=== PATIENT | female | born 1950 | race Caucasian/White ===

== ENCOUNTER 2020-07-07 09:21 | Outpatient (REF) | payer MEDICARE, MEDICAID, SELFPAY ==
--- NOTE | 2020-07-07 10:59 | XR_ITS ---
EXAMINATION: XR KNEES, STANDING AP XR KNEE, LEFT CLINICAL INFORMATION: Knee pain COMPARISON: Standing AP view of both knees and lateral and axial patella views of the left knee dated 09/07/2019. TECHNIQUE: Standing AP view of both knees is performed along with lateral and axial patella views of the left knee. FINDINGS: Left knee: There is total knee arthroplasty. The hardware is intact. There is no fracture, dislocation, or destructive process. No osteolysis. Edema anterior knee soft tissues and Hoffa's fat pad appears decreased from prior study 09/07/2019. Corticated ossification lateral side patellofemoral joint is stable. Right knee: There are degenerative changes greatest medial knee joint compartment with joint narrowing and marginal osteophytes similar to prior study. No interval erosive change or chondrocalcinosis. XR/XR knee standing BI IMPRESSION: Left: Total knee arthroplasty. Hardware intact. No destructive process. Right: Degenerative changes similar to prior exam.
--- NOTE | 2020-07-07 10:59 | XR_ITS ---
EXAMINATION: XR KNEES, STANDING AP XR KNEE, LEFT CLINICAL INFORMATION: Knee pain COMPARISON: Standing AP view of both knees and lateral and axial patella views of the left knee dated 09/07/2019. TECHNIQUE: Standing AP view of both knees is performed along with lateral and axial patella views of the left knee. FINDINGS: Left knee: There is total knee arthroplasty. The hardware is intact. There is no fracture, dislocation, or destructive process. No osteolysis. Edema anterior knee soft tissues and Hoffa's fat pad appears decreased from prior study 09/07/2019. Corticated ossification lateral side patellofemoral joint is stable. Right knee: There are degenerative changes greatest medial knee joint compartment with joint narrowing and marginal osteophytes similar to prior study. No interval erosive change or chondrocalcinosis. XR/XR knee LT 2V IMPRESSION: Left: Total knee arthroplasty. Hardware intact. No destructive process. Right: Degenerative changes similar to prior exam.
== END 2020-07-07 09:22 | disposition home or self-care (01) ==
LOC: HO.HOSX 09:21
PROVIDERS: Visit Provider Orthopaedic Surgery
DX: M25.569 Pain in unspecified knee (principal); Z96.652 Presence of left artificial knee joint
CPT/HCPCS: 73560; 73565; 99212

== ENCOUNTER 2020-09-22 10:58 | Outpatient (REF) | payer MEDICARE, MEDICAID, SELFPAY ==
[2020-09-22 11:49] LABS: Estimated Average Glucose 120 mg/dL; Hemoglobin A1c % 5.8 %
[2020-09-22 12:17] LABS: Alanine Aminotransferase 23 U/L (0-31); Albumin Level 4.3 g/dL (3.5-5.0); Alkaline Phosphatase 70 U/L (39-117); Aspartate Amino Transferase 22 U/L (5-31); Bilirubin Direct 0.3 mg/dL (0.0-0.5); Bilirubin Total 0.6 mg/dL (0.0-1.0); Cholesterol 158 mg/dL; Glucose Fasting 107 mg/dL (60-99); HDL Cholesterol 61 mg/dL; LDL Cholesterol Calculated 80 mg/dl; Total Protein 7.2 g/dL (6.5-8.0); Triglycerides 87 mg/dL
[2020-09-22 12:38] LABS: Reflex LDLD? No
== END 2020-09-22 10:59 | disposition home or self-care (01) ==
LOC: HO.LNP 10:58
PROVIDERS: PCP Internal Medicine; Visit Provider Internal Medicine
DX: E78.00 Pure hypercholesterolemia, unspecified (principal); R73.03 Prediabetes
CPT/HCPCS: 80061; 80076; 82947; 83036

== ENCOUNTER → 2020-11-25 12:44 | Outpatient (BNVA) | payer MEDICARE, MEDICAID, SELFPAY | PROVIDERS: PCP Internal Medicine; Referring Provider Internal Medicine; Visit Provider Internal Medicine | DX: I25.10 Atherosclerotic heart disease of native coronary artery without angina pectoris (principal); E78.5 Hyperlipidemia, unspecified | CPT/HCPCS: 93005; 99212 ==

== ENCOUNTER 2021-03-24 10:11 | Outpatient (REF) | payer MEDICARE, MEDICAID, SELFPAY ==
[2021-03-24 10:16] LABS: MANUAL DIFF FLAG NO
[2021-03-24 10:57] LABS: Basophils Percent Auto 0.7 % (0-2); Eosinophils Absolute Auto 0.2 X10*3/uL (0.0-0.4); Eosinophils Percent Auto 2.7 % (0-4); Hematocrit 45.7 % (37-47); Hemoglobin 14.6 g/dl (12.0-16.0); Imm Gran Abs Auto 0.01 X10*3/uL (0.00-0.03); Imm Gran Pct Auto 0.2 % (0.0-0.4); Lymphocytes Absolute Auto 1.6 X10*3/uL (1.2-4.9); Lymphocytes Percent Auto 26.8 % (20-40); Mean Corpuscular HGB Conc 31.9 g/dl (31.0-35.0); Mean Corpuscular Hemoglobin 29.9 pg (27.0-33.0); Mean Corpuscular Volume 93.6 fL (80-98); Mean Platelet Volume 10.6 fL (9.4-12.3); Monocytes Absolute Auto 0.6 X10*3/uL (0.1-1.2); Monocytes Percent Auto 9.6 % (2-11); Neutrophils Absolute Auto 3.5 X10*3/uL (2.0-8.3); Platelet Count 260 X10*3/uL (160-400); Red Blood Count 4.88 X10*6/uL (4.20-5.50); Red Cell Distribution Width 13.6 % (11.0-16.0); White Blood Count 5.8 X10*3/uL (4.8-10.8)
[2021-03-24 11:20] LABS: Appearance Urine CLEAR; Color Urine YELLOW; Glucose Urine UA NEG (NEG); Leukocyte Esterase Urine NEG (NEG); Nitrite Urine NEG (NEG); Specific Gravity - Urine >= 1.030 (1.005-1.025); Urine Blood TRACE (NEG); Urine Ketones NEG (NEG); Urine Protein NEG (NEG-TRACE)
[2021-03-24 11:38] LABS: Alanine Aminotransferase 17 U/L (0-31); Albumin Level 4.2 g/dL (3.5-5.0); Alkaline Phosphatase 74 U/L (39-117); Anion Gap 12 (12-20); Aspartate Amino Transferase 21 U/L (5-31); Bilirubin Total 0.5 mg/dL (0.0-1.0); Blood Urea Nitrogen 23 mg/dL (9-16); Calcium 9.4 mg/dL (8.4-10.2); Carbon Dioxide 28 mmol/L (22-29); Chloride 106 mmol/L (96-108); Cholesterol 160 mg/dL; Estimated Glomerular Filt Rate > 60; Glucose Fasting 110 mg/dL (60-99); HDL Cholesterol 54 mg/dL; LDL Cholesterol Calculated 78 mg/dl; Potassium 4.8 mmol/L (3.3-5.1); Sodium 141 mmol/L (135-145); Triglycerides 140 mg/dL
[2021-03-24 11:50] LABS: Estimated Average Glucose 126 mg/dL
[2021-03-24 11:59] LABS: Creatinine Urine 169.55 mg/dL; Microalbum/Creatinine Ratio Ur 4.1 ug/mg cr
[2021-03-24 12:02] LABS: Vitamin D 25-OH Total 61.4 ng/mL (>30)
[2021-03-24 12:22] LABS: RBC Urine 0-2 /HPF (0); WBC Urine 0-2 /HPF (0-4)
[2021-03-24 12:23] LABS: Mucus Urine 1+ /LPF; Squamous Epithelial Cell Urine TRACE /LPF
[2021-03-24 12:24] LABS: Reflex LDLD? No
== END 2021-03-24 10:12 | disposition home or self-care (01) ==
LOC: HO.LNP 10:11
PROVIDERS: Visit Provider Internal Medicine
DX: E03.9 Hypothyroidism, unspecified (principal); E78.00 Pure hypercholesterolemia, unspecified; E55.9 Vitamin D deficiency, unspecified; R73.03 Prediabetes
CPT/HCPCS: 80053; 80061; 81001; 81003; 82043; 82306; 83036; 85025

== ENCOUNTER 2021-03-24 10:38 | Outpatient (REF) | payer MEDICARE, MEDICAID, SELFPAY ==
--- NOTE | ~2021-03-24 | MM_ITS ---
EXAMINATION: MM SCREENING DIGITAL BREAST TOMOSYNTHESIS, BILATERAL CLINICAL INFORMATION: Screening. Asymptomatic. The lifetime risk of breast cancer based on the Tyrer-Cuzick Model is 3.3%. COMPARISON: Mammography: March 18, 2020 and studies dating back to September 12, 2015 TECHNIQUE: Digital breast tomosynthesis is performed in both the craniocaudal and mediolateral oblique views along with computer-aided detection (CAD). Synthesized 2D images are generated from the tomosynthesis. FINDINGS: There are scattered areas of fibroglandular density (ACR BI-RADS breast composition Category b). There are no significant masses, abnormal calcifications, or other abnormalities. MM/MM tomosynthesis screening BI IMPRESSION: There are no significant changes from prior study. ASSESSMENT: BI-RADS 1: Negative RECOMMENDATION: Routine annual mammography screening. This patient's information was entered into a reminder system with a target due date for their next mammogram.
--- NOTE | ~2021-03-24 | MM_ITS ---
EXAMINATION: BONE DENSITOMETRY CLINICAL INDICATION: Osteoporosis. COMPARISON: Previous BD dated 03/20/2019 and baseline BD dated 03/07/2015. TECHNIQUE: Using a Run3D QDR series with the [employer] Software, dual-energy x-ray absorptiometry was performed of the lumbar spine and left hip. The images are of good technical quality. Summary results are attached. FINDINGS: AP SPINE L1-L4: Current: BMD 1.120 g/cm2, Z-score 1.3, T-score -0.5, normal, 2.3% increase from previous, 7.2% increase from baseline (<5% change is not significant). Prior: BMD 1.095 g/cm2. Baseline: BMD 1.045 g/cm2. LEFT FEMUR, NECK: Current: BMD 0.673 g/cm2, Z-score -0.9, T-score -2.6, osteoporosis. Prior: BMD 0.702 g/cm2. Baseline: BMD 0.740 g/cm2. LEFT FEMUR, TOTAL: Current: BMD 0.795 g/cm2, Z-score -0.2, T-score -1.7, osteopenia, 1.0% decrease from previous, 7.2% decrease from baseline (<5% change is not significant). Prior: BMD 0.803 g/cm2. Baseline: BMD 0.857 g/cm2. IDENTIFIED RISK FACTORS: Menopause, history of fracture (adult). HISTORY OF FRACTURE: Wrist. MEDICATIONS: Calcium supplements or multivitamin, vitamin D. MM/XR DEXA axial skeleton IMPRESSION: 1. DIAGNOSIS: Severe osteoporosis based on the lowest T-score value of -2.6 in the femoral neck and fracture history applying World Health Organization criteria. 2. 10-YEAR FRACTURE RISK PREDICTION, FRAX: Major osteoporotic fracture (clinical spine, forearm, hip or shoulder) 24.3%. Hip fracture 6.5%. 3. Treatment Recommendations: NOF guidelines recommend consideration for treatment in postmenopausal women and men age 50 and older presenting with the following: -A hip or vertebral (clinical or morphometric) fracture. -T-score less than or equal to -2.5 at the femoral neck or spine after appropriate evaluation to exclude secondary causes. -Low bone mass at the hip or spine and a 10-year fracture probability by FRAX of greater than or equal to 3% for hip fracture or greater than or equal to 20% for major osteoporotic fracture based on the [place] adapted WHO algorithm. 4. Other Recommendations: All treatment decisions require clinical judgment and consideration of individual patient factors, including patient preferences, comorbidities, previous drug use, risk factors not captured in the FRAX model (e.g. frailty, falls, vitamin D deficiency, increased bone turnover, interval significant decline in bone density) and possible under or overestimation of fracture risk by FRAX. Additional medical evaluation for secondary cause of low bone mineral density may be appropriate. FUTURE SCAN RECOMMENDATION: People with diagnosed cases of osteoporosis or at high risk for fracture should have regular bone mineral density tests. For patients eligible for Medicare, routine testing is allowed once every 2 years. The testing frequency can be increased to one year for patients who have rapidly progressing disease, those who are receiving or discontinuing medical therapy to restore bone mass, or have additional risk factors.
== END 2021-03-24 10:39 | disposition home or self-care (01) ==
LOC: HO.MAMMO 10:38
PROVIDERS: PCP Internal Medicine; Visit Provider Internal Medicine
DX: Z12.31 Encounter for screening mammogram for malignant neoplasm of breast (principal); Z13.820 Encounter for screening for osteoporosis; M81.0 Age-related osteoporosis without current pathological fracture; Z78.0 Asymptomatic menopausal state; Z79.899 Other long term (current) drug therapy; Z87.81 Personal history of (healed) traumatic fracture
CPT/HCPCS: 77063; 77067; 77080

== ENCOUNTER 2021-08-11 08:50 | Day surgery (SDC) | payer MEDICARE, MEDICAID, SELFPAY ==
--- NOTE | 2021-08-10 08:50 | P.CONAN_ITS ---
Documented by User: Savannah Vuong NP 08/10/21 08:57 HPI - Anesthesia Eval Consult details Narrative: 70yo F for Colonoscopy PMFSH Active Problems Active Problems: All Active Problems (Updated 11/25/20 @ 13:35 by Leonidas Noonan MD) Other and unspecified hyperlipidemia (Acute) Atherosclerotic cardiovascular disease (Acute) Past Medical History Medical History (Updated 08/11/21 @ 09:23 by Shani Head) Atherosclerotic cardiovascular disease Diabetes HTN (hypertension) Hypercholesterolemia Thyroid disease Family History Family History Father No problems noted. Mother No problems noted. Surgical History Surgical History (Updated 08/05/21 @ 14:24 by Carly Mckeon RN) H/O colonoscopy H/O thyroidectomy History of carpal tunnel release History of total left knee replacement Social History Social History Alcohol intake: never Patient Tobacco Use Status: Former Tobacco user Quit Date: 2011 Tobacco use type: Cigarette Smoked in Last 30 Days: No Use of substances other than those prescribed or required for medical reasons: No Are you DNR?: No Advance Directives: No Advance Directives Information Provided: Yes Current occupational status: retired Current occupation: right handed Meds Allergies Allergy/AdvReac Type Severity Reaction Status Date / Time latex [LATEX] Allergy Intermediate RASH,BLISTE Verified 08/11/21 09:23 RS Home Medications Medication Instructions Recorded Confirmed Last Taken Type celecoxib 200 mg capsule 200 mg PO BID 07/07/20 11/25/20 Unknown History levothyroxine 88 mcg tablet 88 mcg PO QAM 07/07/20 11/25/20 Unknown History aspirin 81 mg tablet,delayed 81 mg PO DAILY 11/25/20 11/25/20 08/04/21 History release amlodipine 5 mg tablet 1 tab PO DAILY 08/11/21 08/11/21 08/11/21 05:00 History Exam Exam Date and Time: August 10, 2021 0850 Height,Weight and Vital Signs: Height 5 ft Pertinent Lab Results Pertinent Lab Results: Laboratory Tests 03/24/21 03/24/21 07:00 07:00 WBC 5.8 Hgb 14.6 Hct 45.7 Plt Count 260 Sodium 141 Potassium 4.8 Chloride 106 Carbon Dioxide 28 BUN 23 H Creatinine 0.78 Narrative Narrative: EKG 11/2020 ?sinus rhythm at 73/Min; cannot exclude old inferior infarct and nonspecific ST- T changes; similar to prior. Per 11/2020 Cardiol OV Echocardiogram with LVEF 60-65%, mild diastolic dysfunction and otherwise unremarkable.? Myocardial perfusion imaging study with ischemia in the mid to distal anterior wall.? Coronary CTA with mild calcification the left main; mild narrowing of proximal LAD; mild calcification of circumflex; mild calcification of right coronary artery and distal 50% stenosis. Assessment and Plan Assessment Anesthesia Assessment: Chart Reviewed Documented by User: Raul Anderson 08/11/21 10:48 [facility] Past Medical History Medical History (Updated 08/11/21 @ 09:23 by Shani Head) Atherosclerotic cardiovascular disease Diabetes HTN (hypertension) Hypercholesterolemia Thyroid disease Family History Family History Father No problems noted. Mother No problems noted. Family history of problems with anesthesia: No Surgical History Surgical History (Updated 08/05/21 @ 14:24 by Carly Mckeon RN) H/O colonoscopy H/O thyroidectomy History of carpal tunnel release History of total left knee replacement History of Problems with Anesthesia: No Social History Social History Alcohol intake: never Patient Tobacco Use Status: Former Tobacco user Quit Date: 2011 Tobacco use type: Cigarette Smoked in Last 30 Days: No Use of substances other than those prescribed or required for medical reasons: No Are you DNR?: No Advance Directives: No Advance Directives Information Provided: Yes Current occupational status: retired Current occupation: right handed Meds Allergies Allergy/AdvReac Type Severity Reaction Status Date / Time latex [LATEX] Allergy Intermediate RASH,BLISTE Verified 08/11/21 09:23 RS Home Medications Medication Instructions Recorded Confirmed Last Taken Type celecoxib 200 mg capsule 200 mg PO BID 07/07/20 11/25/20 Unknown History levothyroxine 88 mcg tablet 88 mcg PO QAM 07/07/20 11/25/20 Unknown History aspirin 81 mg tablet,delayed 81 mg PO DAILY 11/25/20 11/25/20 08/04/21 History release amlodipine 5 mg tablet 1 tab PO DAILY 08/11/21 08/11/21 08/11/21 05:00 History Exam Airway Mallampati Class: II Partial: Upper and Lower Loose/Missing/Broken Teeth: Yes (Chipped , poor dentation ) Heart: rrr Lungs: bl breath sounds Assessment and Plan Assessment Anesthesia Assessment: Anesthesia Plan Discussed Final Anesthetic Review Family History of Problems with Anesthesia: No History of Problems with Anesthesia: No NPO: Yes ASA Class: II Final Preanesthetic Review: Meds/Allgs Chart Reviewed and Anes Risks/Benef Reviewed Patient Risk: Intermediate Procedure Risk: Intermediate Anesthetic Plan Anesthetic Plan: MAC:
[2021-08-11 09:27] VITALS: BMI 26.9
[2021-08-11 09:40] VITALS: BP 145/92; PULSE 88; RESP 16; TEMP 37.2; O2SAT 97
[2021-08-11] MEDS: Lactated Ringers 1,000 ML 100 ML IVCONT (09:54)
--- NOTE | 2021-08-11 10:42 | MHC.SHP ---
Pre-Procedural Eval Section A Date of Service: 08/11/21 The patient is an INPATIENT: No Changes since office visit: No Cold of Flu in the past 2 weeks, No New Medical Problems, No Changes in Medication and No Patient answered all questions The History & Physical has been completed within 30 days and I have reviewed it.: Yes Section B Chief Complaint: screening Allergies: Allergies Allergy/AdvReac Type Severity Reaction Status Date / Time latex [LATEX] Allergy Intermediate RASH,BLISTE Verified 08/11/21 09:23 RS Plan I have reviewed the history and physical and performed a pertinent physical examination on my patient. No changes have occurred unless specified.
--- NOTE | 2021-08-11 10:47 | PC.NURSE ---
Patient unable to remove one gold ring. Patient educated on the risks of bringing metal into the OR. Nellie Moran (OR nurse) aware patient wearing ring.
[2021-08-11 10:49] LABS: Glucose, Whole Blood 103 mg/dL (60-115)
--- NOTE | 2021-08-11 11:12 | PM.OP ---
Brief Operative Note Date of Service: 08/11/21 Pre-op diagnosis: screening Post-op diagnosis: same Procedure: colonoscopy Surgeon: Chaim Torrez Anesthesia: MAC Was an Casing In Line Setter used for this Procedure?: No Estimated blood loss (mL): 0 Pathology: none sent Condition: stable Disposition: PACU
[2021-08-11 11:15] VITALS: BP 90/60; PULSE 84; RESP 16; TEMP 36.8; O2SAT 96
[2021-08-11 11:30] VITALS: BP 110/74; PULSE 80; RESP 16; TEMP 36.8; O2SAT 96
--- NOTE | 2021-08-11 15:08 | OP_ITS ---
SURGEON: Chaim Torrez MD INDICATIONS: Colon cancer screening. PREOPERATIVE DIAGNOSIS: POSTOPERATIVE DIAGNOSIS: PROCEDURE PERFORMED: Colonoscopy to terminal ileum. ESTIMATED BLOOD LOSS: COMPLICATIONS: ANESTHESIA: Medications, monitored anesthesia care. ASSISTANTS: SPECIMENS: DESCRIPTION OF PROCEDURE: A history and physical was performed. The risks and benefits of the procedure were explained to the patient. Informed consent was obtained. The patient was placed in the left lateral decubitus position. A digital rectal exam was performed and was found to be normal. The Olympus pediatric video colonoscope was introduced into the rectum and advanced to the cecum without difficulty. The cecum was identified by transillumination, palpation, and identification of the ileocecal valve. Examination was performed, and the scope was removed. She tolerated the procedure well. She was returned to the recovery room in stable condition. FINDINGS: The terminal ileum was examined and appeared normal. The visualized colonic mucosa was normal. The quality of the prep was good. No polyps were identified. There was mild sigmoid diverticulosis. Retroflexed examination showed small internal hemorrhoids. IMPRESSION: Normal colonoscopy. RECOMMENDATION: 1. Follow up as needed. 2. Repeat colonoscopy is recommended in 10 years for average risk individuals. This will be optional based on the patient's age. MD NOE Mcneal/BRYNN / [phone]
== END 2021-08-11 12:31 | disposition home or self-care (01) ==
PROVIDERS: PCP Internal Medicine; Visit Provider Internal Medicine Gastroenterology
PROC: 0DJD8ZZ Inspection of Lower Intestinal Tract, Via Natural or Artificial Opening Endoscopic (ICD-10-PCS; CPT 45378; principal; 2021-08-11 10:30)
DX: Z12.11 Encounter for screening for malignant neoplasm of colon (principal); K57.30 Diverticulosis of large intestine without perforation or abscess without bleeding; K64.8 Other hemorrhoids; Z91.040 Latex allergy status; I10 Essential (primary) hypertension; E78.00 Pure hypercholesterolemia, unspecified; E11.9 Type 2 diabetes mellitus without complications; Z79.82 Long term (current) use of aspirin; Z79.899 Other long term (current) drug therapy; Z86.73 Personal history of transient ischemic attack (TIA), and cerebral infarction without residual deficits; Z96.652 Presence of left artificial knee joint; Z87.891 Personal history of nicotine dependence
CPT/HCPCS: G0121; 82947

== ENCOUNTER 2021-09-24 10:47 | Outpatient (REF) | payer MEDICARE, MEDICAID, SELFPAY ==
[2021-09-24 11:11] LABS: Estimated Average Glucose 126 mg/dL; Hemoglobin A1C 149.7622 umol/L
[2021-09-24 11:42] LABS: Alanine Aminotransferase 21 U/L (0-31); Albumin Level 4.1 g/dL (3.5-5.0); Alkaline Phosphatase 71 U/L (39-117); Aspartate Amino Transferase 18 U/L (5-31); Bilirubin Direct 0.2 mg/dL (0.0-0.5); Bilirubin Total 0.6 mg/dL (0.0-1.0); Cholesterol 164 mg/dL; Glucose Fasting 110 mg/dL (60-99); HDL Cholesterol 49 mg/dL; LDL Cholesterol Calculated 91 mg/dl; Total Protein 7.1 g/dL (6.5-8.0); Triglycerides 121 mg/dL
[2021-09-24 14:34] LABS: Reflex LDLD? No
== END 2021-09-24 10:48 | disposition home or self-care (01) ==
LOC: HO.LNP 10:47
PROVIDERS: Visit Provider Internal Medicine
DX: E78.00 Pure hypercholesterolemia, unspecified (principal); R73.03 Prediabetes
CPT/HCPCS: 80061; 80076; 82947; 83036

== ENCOUNTER → 2021-11-26 11:33 | Outpatient (BNVA) | payer MEDICARE, MEDICAID, SELFPAY | PROVIDERS: PCP Internal Medicine; Referring Provider Internal Medicine; Visit Provider Internal Medicine | DX: I25.10 Atherosclerotic heart disease of native coronary artery without angina pectoris (principal); I10 Essential (primary) hypertension; E78.5 Hyperlipidemia, unspecified; Z79.82 Long term (current) use of aspirin; Z79.899 Other long term (current) drug therapy | CPT/HCPCS: 93005; 99212 ==

== ENCOUNTER 2022-03-30 10:16 | Outpatient (REF) | payer MEDICARE, MEDICAID, SELFPAY ==
--- NOTE | ~2022-03-30 | MM_ITS ---
EXAMINATION: MM SCREENING DIGITAL BREAST TOMOSYNTHESIS, BILATERAL CLINICAL INFORMATION: Screening. Asymptomatic. The lifetime risk of breast cancer based on the Tyrer-Cuzick Model is 3%. COMPARISON: Mammography: 03/24/2021, 03/18/2020, 10/02/2018 TECHNIQUE: Digital breast tomosynthesis is performed in both the craniocaudal and mediolateral oblique views along with computer-aided detection (CAD). Synthesized 2D images are generated from the tomosynthesis. Additional right MLO view is provided. FINDINGS: There are scattered areas of fibroglandular density (ACR BI-RADS breast composition Category b). There are no significant masses, abnormal calcifications, or other abnormalities. Parenchymal pattern is similar to prior studies. No developing density or architectural changes. There is chronic bilateral nipple retraction. MM/MM tomosynthesis screening BI IMPRESSION: No significant changes from prior studies. ASSESSMENT: BI-RADS 2: Benign RECOMMENDATION: Routine annual mammography screening. This patient's information was entered into a reminder system with a target due date for their next mammogram.
[2022-03-30 11:15] LABS: MANUAL DIFF FLAG NO
[2022-03-30 12:09] LABS: Basophils Percent Auto 0.5 % (0-2); Eosinophils Absolute Auto 0.1 X10*3/uL (0.0-0.4); Eosinophils Percent Auto 2.1 % (0-4); Hematocrit 44.9 % (37.0-47.0); Hemoglobin 14.3 g/dl (12.0-16.0); Imm Gran Abs Auto 0.02 X10*3/uL (0.00-0.03); Imm Gran Pct Auto 0.3 % (0.0-0.4); Lymphocytes Absolute Auto 1.5 X10*3/uL (1.2-4.9); Lymphocytes Percent Auto 24.9 % (20-40); Mean Corpuscular HGB Conc 31.8 g/dl (31.0-35.0); Mean Corpuscular Volume 94.1 fL (80.0-98.0); Mean Platelet Volume 10.1 fL (9.4-12.3); Monocytes Absolute Auto 0.7 X10*3/uL (0.1-1.2); Monocytes Percent Auto 11.8 % (2-11); Neutrophils Absolute Auto 3.7 x10*3/uL (2.0-8.3); Neutrophils Percent Auto 60.4 % (45-73); Platelet Count 287 X10*3/uL (160-400); Red Blood Count 4.77 X10*6/uL (4.20-5.50); Red Cell Distribution Width 13.9 % (11.0-16.0); White Blood Count 6.1 X10*3/uL (4.8-10.8)
[2022-03-30 12:22] LABS: Estimated Average Glucose 128 mg/dL; Hemoglobin A1c % 6.1 %
[2022-03-30 12:32] LABS: Appearance Urine Clear; Color Urine Yellow; Glucose Urine UA Negative (Negative); Leukocyte Esterase Urine Negative (Negative); Nitrite Urine Negative (Negative); PH 5.5 (5.0-9.0); Specific Gravity - Urine >= 1.030 (1.005-1.025); Urine Blood Negative (Negative); Urine Ketones Negative (Negative); Urine Protein Negative (Neg-Trace)
[2022-03-30 12:34] LABS: Alanine Aminotransferase 15 U/L (0-31); Albumin Level 4.1 g/dL (3.5-5.0); Alkaline Phosphatase 67 U/L (39-117); Anion Gap 13 (12-20); Aspartate Amino Transferase 14 U/L (5-31); Bilirubin Total 0.4 mg/dL (0.0-1.0); Blood Urea Nitrogen 23 mg/dL (9-16); Carbon Dioxide 27 mmol/L (22-29); Chloride 106 mmol/L (96-108); Cholesterol 165 mg/dL; Estimated Glomerular Filt Rate > 60; Glucose Fasting 104 mg/dL (60-99); HDL Cholesterol 48 mg/dL; LDL Cholesterol Calculated 97 mg/dl; Potassium 4.3 mmol/L (3.3-5.1); Sodium 142 mmol/L (135-145); Total Protein 6.9 g/dL (6.5-8.0); Triglycerides 102 mg/dL
[2022-03-30 12:40] LABS: Creatinine Urine 272.64 mg/dL
[2022-03-30 12:45] LABS: TSH reflex Free T4 1.56 uIU/mL (0.32-4.0); Vitamin D 25-OH Total 62.6 ng/mL (>30)
== END 2022-03-30 10:17 | disposition home or self-care (01) ==
LOC: HO.MAMMO 10:16
PROVIDERS: PCP Internal Medicine; Visit Provider Internal Medicine
DX: Z12.31 Encounter for screening mammogram for malignant neoplasm of breast (principal); E03.9 Hypothyroidism, unspecified; E78.00 Pure hypercholesterolemia, unspecified; E55.9 Vitamin D deficiency, unspecified; R73.03 Prediabetes
CPT/HCPCS: 36415; 77063; 77067; 80053; 80061; 81003; 82043; 82306; 83036; 84443; 85025

== ENCOUNTER 2022-09-30 10:27 | Outpatient (REF) | payer MEDICARE, MEDICAID, SELFPAY ==
[2022-09-30 11:17] LABS: Alanine Aminotransferase 21 U/L (0-31); Albumin Level 4.1 g/dL (3.5-5.0); Alkaline Phosphatase 62 U/L (39-117); Aspartate Amino Transferase 19 U/L (5-31); Bilirubin Direct < 0.2 mg/dL (0.0-0.5); Bilirubin Total 0.6 mg/dL (0.0-1.0); Cholesterol 173 mg/dL; Glucose Fasting 102 mg/dL (60-99); HDL Cholesterol 52 mg/dL; LDL Cholesterol Calculated 100 mg/dl; Triglycerides 108 mg/dL
[2022-09-30 11:23] LABS: Estimated Average Glucose 128 mg/dL; Hemoglobin A1c % 6.1 %
[2022-09-30 13:03] LABS: Reflex LDLD? No
== END 2022-09-30 10:28 | disposition home or self-care (01) ==
LOC: HO.LNP 10:27
PROVIDERS: Visit Provider Internal Medicine
DX: R73.03 Prediabetes (principal); E78.00 Pure hypercholesterolemia, unspecified
CPT/HCPCS: 80061; 80076; 82947; 83036

== ENCOUNTER → 2022-12-01 11:56 | Outpatient (BNVA) | payer MEDICARE, MEDICAID, SELFPAY | PROVIDERS: PCP Internal Medicine; Referring Provider Internal Medicine; Visit Provider Internal Medicine | DX: I25.10 Atherosclerotic heart disease of native coronary artery without angina pectoris (principal); I10 Essential (primary) hypertension; E78.5 Hyperlipidemia, unspecified; R94.31 Abnormal electrocardiogram [ECG] [EKG]; Z79.82 Long term (current) use of aspirin; Z79.899 Other long term (current) drug therapy | CPT/HCPCS: 93005; 99212 ==

== ENCOUNTER 2023-04-05 10:17 | Outpatient (REF) | payer MEDICARE, MEDICAID, SELFPAY | END 2023-04-05 10:18 | disposition home or self-care (01) | LOC: HO.MAMMO 10:17 | PROVIDERS: PCP Internal Medicine; Visit Provider Internal Medicine | DX: Z12.31 Encounter for screening mammogram for malignant neoplasm of breast (principal) | CPT/HCPCS: 77063; 77067 ==

== ENCOUNTER → 2023-04-05 12:15 | Outpatient (BNV) | payer MEDICARE, MEDICAID, SELFPAY | PROVIDERS: PCP Internal Medicine; Visit Provider Radiology Diagnostic Radiology | DX: Z12.31 Encounter for screening mammogram for malignant neoplasm of breast (principal) | CPT/HCPCS: 77063; 77067 ==

== ENCOUNTER 2023-04-28 11:16 | Outpatient (REF) | payer MEDICARE, MEDICAID, SELFPAY ==
[2023-04-28 11:20] LABS: MANUAL DIFF FLAG NO
[2023-04-28 11:29] LABS: Basophils Absolute Auto 0.1 X10*3/uL (0.0-0.2); Basophils Percent Auto 1.2 % (0-2); Eosinophils Absolute Auto 0.1 X10*3/uL (0.0-0.4); Eosinophils Percent Auto 2.1 % (0-4); Hematocrit 46.2 % (37.0-47.0); Hemoglobin 14.8 g/dl (12.0-16.0); Imm Gran Abs Auto 0.01 X10*3/uL (0.00-0.03); Imm Gran Pct Auto 0.2 % (0.0-0.4); Lymphocytes Absolute Auto 1.6 X10*3/uL (1.2-4.9); Lymphocytes Percent Auto 33.9 % (20-40); Mean Corpuscular Volume 93.7 fL (80.0-98.0); Mean Platelet Volume 10.7 fL (9.4-12.3); Monocytes Absolute Auto 0.4 X10*3/uL (0.1-1.2); Monocytes Percent Auto 9.1 % (2-11); Neutrophils Absolute Auto 2.6 x10*3/uL (2.0-8.3); Neutrophils Percent Auto 53.5 % (45-73); Platelet Count 265 X10*3/uL (160-400); Red Blood Count 4.93 X10*6/uL (4.20-5.50); Red Cell Distribution Width 13.9 % (11.0-16.0); White Blood Count 4.8 X10*3/uL (4.8-10.8)
[2023-04-28 11:32] LABS: Appearance Urine Clear; Color Urine Yellow; Glucose Urine UA Negative (Negative); Leukocyte Esterase Urine Negative (Negative); Nitrite Urine Negative (Negative); Urine Blood Negative (Negative); Urine Ketones Negative (Negative); Urine Protein Negative (Neg-Trace)
[2023-04-28 11:35] LABS: Bacteria Urine None Seen (None Seen); Hyaline Casts Urine 0-2 /LPF (0-2); RBC Urine 0-2 /HPF (0-2); Squamous Epithelial Cell Urine 0-2 /HPF (0-2); WBC Urine 0-5 /HPF (0-5)
[2023-04-28 12:00] LABS: Alanine Aminotransferase 27 U/L (0-31); Albumin Level 4.2 g/dL (3.5-5.0); Alkaline Phosphatase 67 U/L (39-117); Anion Gap 11 (12-20); Aspartate Amino Transferase 25 U/L (5-31); Bilirubin Total 0.6 mg/dL (0.0-1.0); Blood Urea Nitrogen 21 mg/dL (9-16); Carbon Dioxide 27 mmol/L (22-29); Chloride 108 mmol/L (96-108); Cholesterol 181 mg/dL (<200); Estimated Glomerular Filt Rate > 60; Glucose Fasting 109 mg/dL (60-99); HDL Cholesterol 56 mg/dL (>40); LDL Cholesterol Calculated 102 mg/dL (<100); Potassium 4.7 mmol/L (3.3-5.1); Sodium 141 mmol/L (135-145); Total Protein 7.6 g/dL (6.5-8.0); Triglycerides 116 mg/dL (<150)
[2023-04-28 12:06] LABS: Vitamin D 25-OH Total 97.3 ng/mL (>30)
== END 2023-04-28 11:17 | disposition home or self-care (01) ==
LOC: HO.LNP 11:16
PROVIDERS: Visit Provider Internal Medicine
DX: E03.9 Hypothyroidism, unspecified (principal); E78.00 Pure hypercholesterolemia, unspecified; E55.9 Vitamin D deficiency, unspecified; I10 Essential (primary) hypertension
CPT/HCPCS: 80053; 80061; 81001; 82306; 84153; 84443; 85025

== ENCOUNTER 2023-10-25 11:02 | Outpatient (REF) | payer MEDICARE, MEDICAID, SELFPAY ==
[2023-10-25 12:05] LABS: Alanine Aminotransferase 23 U/L (0-31); Albumin Level 4.3 g/dL (3.5-5.0); Alkaline Phosphatase 66 U/L (39-117); Aspartate Amino Transferase 23 U/L (5-31); Bilirubin Direct 0.2 mg/dL (0.0-0.5); Bilirubin Total 0.6 mg/dL (0.0-1.0); Cholesterol 163 mg/dL (<200); Glucose Fasting 107 mg/dL (60-99); HDL Cholesterol 57 mg/dL (>40); LDL Cholesterol Calculated 86 mg/dL (<100); Total Protein 7.7 g/dL (6.5-8.0); Triglycerides 104 mg/dL (<150)
[2023-10-25 12:08] LABS: Estimated Average Glucose 128 mg/dL; Hemoglobin A1c % 6.1 % (<6.0)
[2023-10-25 12:45] LABS: Reflex LDLD? No
== END 2023-10-25 11:03 | disposition home or self-care (01) ==
LOC: HO.LNP 11:02
PROVIDERS: Visit Provider Internal Medicine
DX: E78.00 Pure hypercholesterolemia, unspecified (principal); R73.03 Prediabetes
CPT/HCPCS: 80061; 80076; 82947; 83036

== ENCOUNTER 2024-04-10 08:52 | Outpatient (REF) | payer MEDICARE, MEDICAID, SELFPAY ==
--- NOTE | ~2024-04-10 | MM_ITS ---
EXAMINATION: MM SCREENING DIGITAL BREAST TOMOSYNTHESIS, BILATERAL CLINICAL INFORMATION: Screening. Asymptomatic. COMPARISON: Mammography: Comparison is made with available priors TECHNIQUE: Digital breast mammography with tomosynthesis is performed in both the craniocaudal and mediolateral oblique views along with computer-aided detection (CAD). FINDINGS: There are scattered areas of fibroglandular density (ACR BI-RADS breast composition Category b). There are no significant masses, abnormal calcifications, or other abnormalities. MM/MM tomosynthesis screening BI IMPRESSION: No mammographic evidence of malignancy. ASSESSMENT: BI-RADS BI-RADS 1 - Negative RECOMMENDATION: Routine annual mammography screening. 1 year F/U This examination should not preclude the clinical evaluation of a suspicious palpable abnormality. This patient's information was entered into a reminder system with a target due date for their next mammogram. Electronically signed by: Jannet Rincon DO 04/20/2024 04:45 PM EDT
== END 2024-04-10 08:53 | disposition home or self-care (01) ==
LOC: HO.MAMMO 08:52
PROVIDERS: PCP Internal Medicine; Visit Provider Internal Medicine
DX: Z12.31 Encounter for screening mammogram for malignant neoplasm of breast (principal)
CPT/HCPCS: 77063; 77067

== ENCOUNTER → 2024-04-10 10:15 | Outpatient (BNV) | payer MEDICARE, MEDICAID, SELFPAY | PROVIDERS: PCP Internal Medicine; Visit Provider Internal Medicine | DX: Z12.31 Encounter for screening mammogram for malignant neoplasm of breast (principal) | CPT/HCPCS: 77063; 77067 ==

== ENCOUNTER 2024-04-24 12:18 | Outpatient (AMB) | payer MEDICARE, MEDICAID, SELFPAY ==
[2024-04-24 12:28] VITALS: BP 120/62; PULSE 73; BMI 24.5
--- NOTE | 2024-04-24 12:28 | MHC.OFFVIS ---
Vital Signs 04/24/24 12:28 Height 5 ft Weight 125 lb 10.616 oz BMI 24.5 BP 120/62 Blood Pressure Location Lt brachial Position Sitting Pulse 73 Pulse Source Monitor Intake Visit Reasons: 1 yr f/up Allergies latex [LATEX] Allergy (Intermediate, Verified 12/01/22 12:50) RASH,BLISTERS Medication List - Last Reconciled 04/24/24 by Leonidas Noonan MD amlodipine 5 mg PO DAILY aspirin 81 mg PO DAILY atorvastatin 80 mg PO BEDTIME celecoxib 200 mg PO DAILY levothyroxine 88 mcg PO QAM HPI Comments Details: Margaret returns for follow-up regarding coronary artery disease. In the past, she was seen for preoperative evaluation for knee surgery. In that context a routine EKG had shown possible inferior wall infarction. Subsequently she had stress testing as well as coronary CTA. She has nonobstructive CAD. Overall, she feels good. No cardiac symptoms. [facility] Medical History (Updated 12/01/22 @ 13:21 by Leonidas Noonan MD) Essential hypertension HTN (hypertension) Atherosclerotic cardiovascular disease Diabetes Thyroid disease Hypercholesterolemia Surgical History H/O colonoscopy History of total left knee replacement History of carpal tunnel release H/O thyroidectomy Family History Father No problems noted. Mother No problems noted. Social History (Updated 12/01/22 @ 12:51 by Colleen Herrera) Alcohol intake: current Alcohol intake frequency: holidays/special occasions only Patient Tobacco Use Status: Former Tobacco user Current occupational status: retired Current occupation: right handed Review of Systems Const Denies weakness ENT Denies dizziness Card Denies chest pain, Denies chest pain with activity, Denies syncope, Denies rapid heart rate, Denies pedal edema, Denies edema, Denies leg edema, Denies lightheadedness, Denies palpitations, Denies dyspnea, Denies dyspnea on exertion and Denies orthopnea Resp Denies cough, Denies dyspnea and Denies dyspnea on exertion GI Denies hematochezia and Denies change in stool character Musc Denies abnormal gait, Denies muscle cramps, Denies muscle weakness, Denies numbness, Denies radiating pain into limb and Denies tingling Neuro Denies abnormal gait, Denies dizziness, Denies syncope, Denies numbness, Denies tingling and Denies weakness Endo Denies palpitations Physical Exam Vital Signs: Last Vital Signs Pulse 73 04/24/24 12:28 BP 120/62 04/24/24 12:28 BMI result Body Mass Index 24.5 Const General: comfortable and no acute distress Orientation/consciousness: patient oriented x3 HEENT Other: Unremarkable Head: Yes normal to inspection Neck Neck: Yes normal visual inspection Chest Chest palpation & inspection: normal inspection of the chest Resp Auscultation: clear to auscultation bilaterally Cardio Palpation: normal PMI Heart sounds: S1 normal heart sound present, S2 normal heart sound present, no gallops, no murmurs and no rubs GI Palpation (GI): Soft to palpation Back/Spine/Pelvis Other: unremarkable Skin General skin exam: no rashes or lesions noted Neuro General: patient oriented x3 Extrem General: Yes normal to inspection Psych Mental Status: mental status grossly normal Office Procedures EKG Details: EKG with underlying sinus rhythm at 73/Min; no significant ST-T changes; [place] [id number], Complete Assessment & Plan Assessment & Plan (1) Atherosclerotic cardiovascular disease: Code(s): I25.10 - Atherosclerotic heart disease of elem coronary artery without angina pectoris Category: Medical (2) Essential hypertension: Code(s): I10 - Essential (primary) hypertension Category: Medical (3) Other and unspecified hyperlipidemia: Code(s): E78.5 - Hyperlipidemia, unspecified Category: Medical (4) Prolonged QT interval: Code(s): R94.31 - Abnormal electrocardiogram [ECG] [EKG] Category: Medical Plan Cardiac studies reviewed. Echocardiogram with LVEF 60-65%, mild diastolic dysfunction and otherwise unremarkable. Myocardial perfusion imaging study with ischemia in the mid to distal anterior wall. Coronary CTA with mild calcification the left main; mild narrowing of proximal LAD; mild calcification of circumflex; mild calcification of right coronary artery and distal 50% stenosis. Overall, stable coronary disease without any symptoms. She remains on aspirin, amlodipine, atorvastatin. Lipids are less than ideal but acceptable. Her corrected QT is 475 milliseconds. Borderline prolonged. Cautioned with any QT prolonging drugs in the future. Coding Level of Care Code Est Pt Level 4 (19646) Diagnoses Atherosclerotic cardiovascular disease I25.10 Essential hypertension I10 Other and unspecified hyperlipidemia E78.5 Prolonged QT interval R94.31 CPT Codes EKG - CPT: 51928-[id number], Complete ([id number])
== END 2024-04-24 13:00 | disposition home or self-care (01) ==
PROVIDERS: Visit Provider Internal Medicine
DX: I25.10 Atherosclerotic heart disease of native coronary artery without angina pectoris (principal); I10 Essential (primary) hypertension; E78.5 Hyperlipidemia, unspecified; R94.31 Abnormal electrocardiogram [ECG] [EKG]
CPT/HCPCS: 93010; 99214

== ENCOUNTER → 2024-04-24 12:18 | Outpatient (BNVA) | payer MEDICARE, MEDICAID, SELFPAY | PROVIDERS: Visit Provider Internal Medicine | DX: I25.10 Atherosclerotic heart disease of native coronary artery without angina pectoris (principal); I10 Essential (primary) hypertension; E78.5 Hyperlipidemia, unspecified; R94.31 Abnormal electrocardiogram [ECG] [EKG] | CPT/HCPCS: 93005; 99212 ==

== ENCOUNTER 2024-05-01 10:49 | Outpatient (REF) | payer MEDICARE, MEDICAID, SELFPAY ==
[2024-05-01 11:04] LABS: MANUAL DIFF FLAG NO
[2024-05-01 11:16] LABS: Basophils Percent Auto 0.9 % (0-2); Eosinophils Absolute Auto 0.2 X10*3/uL (0.0-0.4); Eosinophils Percent Auto 4.3 % (0-4); Hematocrit 44.2 % (37.0-47.0); Hemoglobin 14.4 g/dl (12.0-16.0); Imm Gran Abs Auto 0.01 X10*3/uL (0.00-0.03); Imm Gran Pct Auto 0.2 % (0.0-0.4); Lymphocytes Absolute Auto 1.6 X10*3/uL (1.2-4.9); Lymphocytes Percent Auto 35.3 % (20-40); Mean Corpuscular HGB Conc 32.6 g/dl (31.0-35.0); Mean Corpuscular Hemoglobin 30.3 pg (27.0-33.0); Mean Corpuscular Volume 92.9 fL (80.0-98.0); Mean Platelet Volume 9.7 fL (9.4-12.3); Monocytes Absolute Auto 0.5 X10*3/uL (0.1-1.2); Monocytes Percent Auto 11.2 % (2-11); Neutrophils Absolute Auto 2.2 x10*3/uL (2.0-8.3); Neutrophils Percent Auto 48.1 % (45-73); Platelet Count 259 X10*3/uL (160-400); Red Blood Count 4.76 X10*6/uL (4.20-5.50); Red Cell Distribution Width 13.3 % (11.0-16.0); White Blood Count 4.6 X10*3/uL (4.8-10.8)
[2024-05-01 11:17] LABS: Estimated Average Glucose 126 mg/dL; Hemoglobin A1C 156.2119 umol/L; Total Hemoglobin (HGBA1C) 3753.9571 umol/L
[2024-05-01 11:18] LABS: Appearance Urine Clear; Color Urine Yellow; Glucose Urine UA Negative (Negative); Leukocyte Esterase Urine Trace (Negative); Nitrite Urine Negative (Negative); PH 5.5 (5.0-9.0); Specific Gravity - Urine 1.025 (1.005-1.025); UMIC TRIGGER UACC YES; Urine Blood Negative (Negative); Urine Ketones Negative (Negative); Urine Protein Negative (Neg-Trace)
[2024-05-01 11:23] LABS: Bacteria Urine None Seen (None Seen); Hyaline Casts Urine 0-2 /LPF (0-2); RBC Urine 0-2 /HPF (0-2); Squamous Epithelial Cell Urine 0-2 /HPF (0-2); WBC Urine 0-5 /HPF (0-5)
[2024-05-01 12:11] LABS: Alanine Aminotransferase 19 U/L (0-31); Alkaline Phosphatase 67 U/L (39-117); Anion Gap 12 (12-20); Aspartate Amino Transferase 27 U/L (5-31); Bilirubin Total 0.5 mg/dL (0.0-1.0); Blood Urea Nitrogen 22 mg/dL (9-16); Calcium 9.3 mg/dL (8.4-10.2); Carbon Dioxide 28 mmol/L (22-29); Chloride 108 mmol/L (96-108); Cholesterol 146 mg/dL (<200); Estimated Glomerular Filt Rate > 60; Glucose Fasting 100 mg/dL (60-99); HDL Cholesterol 52 mg/dL (>40); LDL Cholesterol Calculated 77 mg/dL (<100); Potassium 4.5 mmol/L (3.3-5.1); Sodium 143 mmol/L (135-145); Total Protein 7.4 g/dL (6.5-8.0); Triglycerides 87 mg/dL (<150)
[2024-05-01 12:16] LABS: Vitamin D 25-OH Total 103.6 ng/mL (>30)
[2024-05-01 12:56] LABS: Creatinine Urine 170.97 mg/dL; Microalbum/Creatinine Ratio Ur 5.2 ug/mg cr (<30)
== END 2024-05-01 10:50 | disposition home or self-care (01) ==
LOC: HO.LNP 10:49
PROVIDERS: Visit Provider Internal Medicine
DX: E03.9 Hypothyroidism, unspecified (principal); E78.00 Pure hypercholesterolemia, unspecified; E55.9 Vitamin D deficiency, unspecified; R73.03 Prediabetes; I10 Essential (primary) hypertension
CPT/HCPCS: 80053; 80061; 81001; 82043; 82306; 82570; 83036; 85025

== ENCOUNTER 2024-05-08 15:41 | Outpatient (REF) | payer MEDICARE, MEDICAID, SELFPAY ==
[2024-05-08 16:26] LABS: TSH reflex Free T4 0.21 uIU/mL (0.32-4.0)
[2024-05-08 17:06] LABS: Free T4 (Free Thyroxine) 1.27 ng/dL (0.71-1.85)
== END 2024-05-08 15:42 | disposition home or self-care (01) ==
LOC: HO.LNP 15:41
PROVIDERS: Visit Provider Internal Medicine
DX: E03.9 Hypothyroidism, unspecified (principal)
CPT/HCPCS: 84439; 84443

== ENCOUNTER 2024-11-22 10:51 | Outpatient (REF) | payer MEDICARE, MEDICAID, SELFPAY ==
[2024-11-22 11:11] LABS: Estimated Average Glucose 126 mg/dL
--- OUTSIDE RECORDS SUMMARY | 2024-11-22 11:34 | XMS_ITS | Patient Health Record ---
Author Organization [facility] Address [address] [place] [address] Care Team Providers Care Voicer Name Role Phone Murphy Villagomez MD Primary Care Provider Chaim Galan Jr Unavailable Allergies Allergen (clinical drug ingredient) Drug/Non Drug Allergy documented on EMR Reaction Allergy Type Onset Date Status Latex latex (uncoded) Unknown Allergy Acti ve Reason For Referral No Information Medications Medication SIG (Take, Route, Frequency, Duration) Notes Start Date End Date Status amLODIPine Besy-Benazepril HCl 5-10 MG as directed Orally Active Levothyroxine Sodium 0.088mg Active Atorvastatin Calcium 80 MG 1 tablet Oral ly Once a day Active Aspirin 81 81 MG 1 tablet Orally Once a day for 30 day(s) Active Celecoxib 200 MG 1 capsule with food Orally Once a day for 30 day(s) Active Calcium 1200 8150-6339 MG-UNIT 1 tablet Orally Once a day for 30 day(s) Active Vitamin D3 250 MCG (17318 UT) as directed Orally Active MiraLax (colon prep) 17 GM/SCOOP mixed with Gatorade or Crystal Light Orally begin at 5:00 p.m. the day before the procedure for 1 day 07/29/2021 Active Immunizations Vaccine Route Administration Date Status Comme nts Influenza Unknown 04/15/2021 Administered Social History Tobacco Use: Social History Observation Description Date Details (start date - stop date) Former Smoker NA - NA Tobacco Use/Smoking Question Answer Notes Patient is a former smoker Problems Problem Type SNOMED Code ICD Code Onset Dates Problem Status W/U Status Risk Notes Problem Irritable bowel syndrome (81966985) Irritable bowel syndrome (564.1) Active confirmed Problem 517521112 Colon cancer screening (Z12.11) Active confirmed Problem 853749901 Long-term use of aspirin therapy (Z79.82) Active confirmed Plan Of Treatment Future Test Test Name Order Date COLONOSCOPY 05/11/2012 COLONOSCOPY 07/29/2021 Insurance Providers Payer Name Payer Address Payer Phone Subscriber Number Group Number Insured Name Patient Relationship to Insured Coverage Start Date Coverage End Date MEDICARE OF [place] [address] [place] [id number] SONIA PACHECO Self - patient is the insured MEDICAID OF [facility] [address] [place] [address] [id number] SONIA PACHECO Self - patient is the insured Medical (General) History Medical History History ICD Code Degenerative joint disease CVA 2013 Hypertension Elevated cholesterol Surgical History Surgery Date(Month/Year) thyroid surgery knee replacement
--- OUTSIDE RECORDS SUMMARY | 2024-11-22 11:34 | XMS_ITS ---
Author Organization Murphy Villagomez MD Address [address] [place] [phone] Care Team Providers Care Senior Economist Name Role Phone Murphy Villagomez Primary Care Provider Results Component Value Reference Range Notes Hemoglobin A1c (Not yet revi ewed by provider) Interpretation: Performing Lab:[facility], [address] [place] [phone] Notes/Report: Hemoglobin A1c % 6.0 <6.0 % [...] average glucose, using the formula of the I4U-Jnifrox Average Glucose study (ADAG), Diabetes Care, Vol.31,#8, Feb. 2007 REASON FOR VISIT fasting lipids Encounters Encounter Location Date Provider Diagnosis Murphy Villagomez MD [address] [place] [address] [place] [phone] 11/22/2024 Murphy Villagomez Pure hypercholestero lemia E78.00 and Prediabetes R73.03 Assessments Encounter Date Diagnosis (ICD Code) Assessment Notes Treatment Notes Treatment Clinical Notes Section Notes 11/22/2024 Pure hypercholesterolemia (ICD-10 - E78.00) 11/22/2024 Prediabetes (ICD-10 - R73.03) Plan Of Treatment Pending Test Test Name Order Date Liver Panel 11/22/2024 Glucose Fasting 11/22/2024 Lipid Panel with Reflex 11/22/2024 Hemoglobin A1c 11/22/2024 Next Appt Details Provider Name:Murphy duarte, 11/29/2024 10:45:00 AM, [address] [place] [address], Suite [facility], [place], [place], [phone], Provider Name:Murphy duarte, 05/06/2025 07:45:00 AM, [address] [place] [address], Suite [facility], [place], [place], [phone], Provider Name:Murphy duarte, 05/13/2025 01:00:00 PM, [address] [place] [address], Suite [facility], [place], [place], [phone], Progress Notes * Margaret PACHECO KDOB:[birth year] (74 yo F)Acc No.[id number]:11/22/2024 Progress Note Patient:?Cj PACHECObrice Yodit Provider:?Murphy Villagomez MD :1950???Age:74 Y???Sex:Female D ate:11/22/2024 Address: [address] , [facility] Subjective: * Chief Complaints: * ???1. Fasting lipids. * Medical History:? Objective: * Vitals:? Assessment: * Assessment: 1.?Pure hypercholesterolemia - E78.00 (Primary)???2.?Prediabetes - R73.03??? Plan: * Treatment: 2.?Prediabetes?LAB: Liver Panel ?LAB: Glucose Fasting ?LAB: Lipid Panel with Reflex ?LAB: Hemoglobin A1c (Collection Date & Time - 11/22/2024 08:30 AM) * Procedure Codes:?84891 VENIP UNCT, ROUTINE* * * The named appointment provid er may or may not be the originator of this progress note, and it is not deemed complete until electronically signed by the appointment provider. Sign off status: Pending * Provider:?Murphy Villagomez MD Date:?0 11/22/2024 Generated for Kerry tierney/Zuleika/Lakishaitting on:?11/22/2024 11:34 AM EDT
--- OUTSIDE RECORDS SUMMARY | 2024-11-22 11:34 | XMS_ITS ---
Author Organization Murphy Villagomez MD Address [address] [place] [phone] Care Team Providers Care Cable Splicer Helper Name Role Phone Murphy Villagomez Primary Care Provider REASON FOR VISIT FYI record request Encounters Encounter Location Date Provider Diagnosis Murphy Villagomez MD [address] [facility] [address] [place] [phone] 05/18/2024 Murphy Villagomez Plan Of Treatment Next Appt Details Provider Name:Murphy duarte, 11/29/2024 10:45:00 AM, [address] [place] [address], [address], [phone], Provider Name:Murphy duarte, 05/06/2025 07:45:00 AM, [address] [place] [address], [address], [phone], Provider Name:Murphy Tonya Reelina gerald, 05/13/2025 01:00:00 PM, [address], [address], [place], [place], [phone], Progress Notes * Margaret PACHECO KDOB:[birth year] (73 yo F)Acc No.[id number]:05/18/2024 Patient:?Margaret Pacheco K :1950???Age:73 Y???Sex:Female Address: [address] , [place], [address] * true * Date:? Generated for Kerry tierney/Zuleika/eTrevasmitting on:?11/22/2024 11:34 AM EDT
--- OUTSIDE RECORDS SUMMARY | 2024-11-22 11:34 | XMS_ITS ---
Author Organization Murphy Villagomez MD Address [address] [place] [phone] Care Team Providers Care Substance Abuse Counselor Name Role Phone Murphy Villagomez Primary Care Provider Allergies Allergen (clinical drug ingredient) Drug/Non Drug Allergy documented on EMR Reaction Allergy Type Onset Date Status Latex latex (uncoded) rash Allergy Acti ve Results Component Value Reference Range Notes TSH reflex Free T4 Reviewed date:05/09/2024 12:22:05 PM Interpretation: Performing Lab:[facility], [address] [place] [id number] Notes/Report: TSH reflex Free T4 0.21 0.32-4.0 [...] Problem Status W/U Status Risk Notes Problem [id number] MARA (obstructive sleep apnea) (G47.33) Active confirmed Problem 622522190 History of lung cancer (Z85.118) Active confirmed Vital Signs Blood pressure systolic 114 mm Hg 05/08/20 24 Blood pressure diastolic 62 mm Hg 024 Height 60.5 in 05/08/2024 Weight 126 lbs 05/08/2024 BMI 24.20 kg/m2 05/08/2024 Encounters Encounter Location Date Provider Diagnosis Murpyh Villagomez MD [address] [place] [address] [place] [id number] 05/08/2024 Murphy Villagomez Acquired hypothyroidism E03.9 ; Prediabetes R73.03 ; Primary osteoarthritis, right hand M19.041 ; Vitamin D deficiency E55.9 ; MARA (obstructive sleep apnea) G47.33 ; CAD in [place] artery I25.10 ; Essential hypertension I10 ; [...] to have this done 05/08/2024 CAD in [place] artery (ICD-10 - I25.10) stable, will continue current regiment 05/08/2024 Essential hypertension (ICD-10 - I10) doing well, will continue current regiment 05/08/2024 Intrinsic eczema (ICD-10 - L20.84) stable, will continue current regiment 05/08/2024 Depression screening (ICD-10 - Z13.31) negative screen 05/08/2024 Other did have surgery and is doing well/ NEED D/C SUMMARY [facility] and dr muller note/ request will [...] refusing to have this done CAD in [place] artery stable, will contin ue current regiment Essential hypertension doing well, will continue current regiment Intrinsic eczema stable, will continu e current regiment Depression screening negative screen Other did have surgery and is doing well/ NEED D/C SUMMARY [facility] and dr muller note/ request will be sent Next Appt Details Follow Up: 6 Months, Reason: Provider Name:Murphy Melgoza ier, 11/29/2024 10:45:00 AM, [address], [address], [place], [phone], Provider Name:Murphy Melgoza ier, 05/06/2025 07:45:00 AM, [address], [address], [place], [phone], Provider Name:Murphy Melgoza ier, 05/13/2025 01:00:00 PM, [address], [address], [place], [phone], Progress Notes * Margaret PACHECO KDOB:[birth year] (73 yo F)Acc No.[id number]:05/08/2024 Patient:?Margaret Pacheco Provider:?Murphy Villagomez MD :1950???Age:73 Y???Sex:Female D ate:05/08/2024 Address: [address] [id number] Subjective: * Chief Complaints: * ???Review labsCBACK VIT D * HPI: ???Depression Screening:?PHQ-9?Little interest or pleasure in doing things?Not at all,?Feeling down, depressed, or hopeless?Not at all,?Trouble falling or staying asleep, or sleeping too much?Not at all,?Feeling tired or having little energy?Not at all,?Poor appetite or overeating?Not at all,?Feeling bad about yourself or that you are a failure, or have let yourself or your family down?Not at all,?Trouble concentrating on things, such as reading the newspaper or watching television?Not at all,?Moving or speaking so slowly that other people could have noticed; or the opposite, being so fidgety or restless that you have been moving around a lot more than usual?Not at all,?Thoughts that you would be better off or of hurting yourself in some way?Not at all,?Total Score?0.?Interpretation and Intervention?Depression Screening Findings?Negative,?Follow-Up for Depression?: review of PHQ-9 found negative result, no follow-up needed.?Communication Needs:?Communication Needs?Does the patient have a hearing impairment?No,?Does the patient have a vision impairment??Yes,?If yes, what is the vision impairment??Glasses,?Does the patient have a cognition impairment??No.?Fall Risk:?History?Have you had any falls with injury in the past year??No,?Have you had two or more falls in the past year??Yes.?SDOH Questions:?SDOH Questions?In the past year have you been worried about losing housing??No,?In the past year have you or any family members you live with been unable to get any of the following when it was really needed? Check all that apply:?None.?Symptom(s):? patient is a 73 yo female here for review of recent labs and follow up of chronic issues,. * ROS:?General/Constitutional:?Patient denies?fatigue , headache.?Change in appetite?denies.?Chills?denies.?Fever?denies.?Ophthalmologic:?Blurred vision?denies.?Discharge?denies.?Pain?denies.?ENT:?Patient denies?decreased sense of smell , any loss of taste , sore throat.?Decreased hearing?denies.?Sore throat?denies.?Swollen glands?denies.?Endocrine:?Cold intolerance?denies.?Excessive thirst?denies.?Heat intolerance?denies.?Weight loss?denies.?Respiratory:?Cough?denies.?Shortness of breath at rest?denies.?Shortness of breath with exertion?denies.?Wheezing?denies.?Cardiovascular:?Chest pain at rest?denies.?Chest pain with exertion?denies.?Irregular heartbeat?denies.?Shortness of breath?denies.?Gastrointestinal:?Abdominal pain?denies.?Change in bowel habits?denies.?Diarrhea?denies.?Nausea?denies.?Rectal bleeding?denies.?Vomiting?denies .?Genitourinary:?Blood in urine?denies.?Difficulty urinating?denies.?Frequent urination?denies.?Urinary incontinence?Denies.?Musculoskeletal:?Patient denies?muscle aches.?Painful joints?denies.?Weakness?denies.?Skin:?Dry skin?denies.?Itching?denies.?Denies?Mole(s),? changes in moles, new moles or any lesions of concern.?Denies?Photosensitivity.?Rash?denies.?Neurologic:?Dizziness?denies.?Fainting?denies.?Headache?denies.? * Medical History:? * Surgical History:? * Hospitalization/Major Diagno stic Procedure:? * Family History:?Father: dece ased 81 yrs.?Mother: 49 yrs, diagnosed with Cancer.?2 brother(s) , 2 sister(s) . 2 daughter(s) . .? Denies mental health/substance abuse family history, Denies mental health/substance abuse family history, Denies mental health/substance abuse family history. * Social History:?Tobacco Use:?Tobacco Use/Smoking?Patient is a?former smoker,?How long has it been since you last smoked??> 10 years,?Additional Findings: Tobacco Non-User?Former smoker, currently using no form of tobacco.?Drugs/Alcohol:?Alcohol Screen?Did you have a drink containing alcohol in the past year??No,?Points?0,?Interpretation?Negative.?Miscellaneous:?Caffeine: yes, frequency:, 1-2 cups per day. Children: yes. Community involvements: yes. Exercise: yes, gardening. Housing: renting. Living with: spouse. Marital status: . Occupation: weeks/months/years, Retired. Pets: none, 2 dogs. no Travel outside of the [place]. * Medications:?TakingMagnesium 400 MG Capsule as directed Orally Aspirin [...] 400 MG Capsule as directed Orally * Allergies:?latex: rashyes[Alberto andrade Verified] Objective: * Vitals:?Ht: 60.5, Wt:126, BM I:24.20, BP:114/62. * ???Past Orders: ???Lab:Complete Blood Count Auto Diff (Order Date - 05/01/2024) (Collection Date - 05/01/2024) ? Value Reference Range ?White Blood Count 4.6 L 4. 8-10.8 - X10*3/uL ?Red Blood Count 4.76 4.20 -5.50 - X10*6/uL ?Hemoglobin 14.4 12.0-16.0 - g/dl ?Hematocrit 44.2 37.0-47.0 - % ?Mean Corpuscular Volume 92.9 80.0-98.0 - fL ?Mean Corpuscular Hemoglobin 30.3 27.0-33.0 - pg ?Mean Corpuscular HGB Conc 32.6 31.0-35.0 - g/dl ?Red Cell Distribution Width 13.3 11.0-16.0 - % ?Platelet Count 259 160-4 00 - X10*3/uL ?Mean Platelet Volume 9.7 9.4-12.3 - fL ?Neutrophils Percent Auto 48.1 45-73 - % ?Imm Gran Pct Auto 0.2 0. 0-0.4 - % ?Lymphocytes Percent Auto 35.3 20-40 - % ?Monocytes Percent Auto 11.2 H 2-11 - % ?Eosinophils Percent Auto 4.3 H 0-4 - % ?Basophils Percent Auto 0.9 0-2 - % ?NRBC Pct Auto 0.0 0.0-0. 2 - /100WBC ?Neutrophils Absolute Auto 2.2 2.0-8.3 - x10*3/uL ?Imm Gran Abs Auto 0.01 0. 00-0.03 - X10*3/uL ?Lymphocytes Absolute Auto 1.6 1.2-4.9 - X10*3/uL ?Monocytes Absolute Auto 0.5 0.1-1.2 - X10*3/uL ?Eosinophils Absolute Auto 0.2 0.0-0.4 - X10*3/uL ?Basophils Absolute Auto 0.0 0.0-0.2 - X10*3/uL ?NRBC Abs Auto 0.000 0.0-0. 012 - X10*3/uL ???Lab:Comprehensive Volin. P pam Fast (Order Date - 05/01/2024) (Collection Date - 05/01/2024) ? Value Reference Range ?Sodium 143 135-145 - mmo l/L ?Bilirubin Total 0.5 0.0- 1.0 - mg/dL ?Aspartate Amino Transferase 27 5-31 - U/L ?Alanine Aminotransferase 19 0-31 - U/L ?Total Protein 7.4 6.5-8. 0 - g/dL ?Albumin Level 4.0 3.5-5. 0 - g/dL ?Alkaline Phosphatase 67 39-117 - U/L ?Potassium 4.5 3.3-5.1 - mmol/L ?Chloride 108 96-108 - mm ol/L ?Carbon Dioxide 28 22-29 - mmol/L ?Anion Gap 12 12-20 - ?Blood Urea Nitrogen 22 H 9-16 - mg/dL ?Creatinine 0.81 0.5-1.4 - mg/dL ?Estimated Glomerular Filt Rate > 60 - ?Glucose Fasting 100 H 60-9 9 - mg/dL ?Calcium 9.3 8.4-10.2 - m g/dL ???Lab:Lipid Panel (Order Da te - 05/01/2024) (Collection Date - 05/01/2024) ? Value Reference Range ?Triglycerides 87 <150 - mg/dL ?Cholesterol 146 <200 - m g/dL ?LDL Cholesterol Calculated 77 <100 - mg/dL ?HDL Cholesterol 52 >40 - mg/dL ???Lab:Microalbumin, Random (Order Date - 05/01/2024) (Collection Date - 05/01/2024) ? Value Reference Range ?Creatinine Urine 170.97 - m g/dL ?Microalbumin Urine 9.0 - mg/L ?Microalbum Creatinine Ratio Ur 5.2 <30 - ug/mg cr ???Lab:Hemoglobin A1c (Order Date - 05/01/2024) (Collection Date - 05/01/2024) ? Value Reference Range ?Hemoglobin A1c % 6.0 <6. 0 - % ?Estimated Average Glucose 126 - mg/dL ???Lab:UA ClnCatch+Micro w/r flx Cult (Order Date - 05/01/2024) (Collection Date - 05/01/2024) ? Value Reference Range ?Color Urine Yellow - ?Appearance Urine Clear - ?PH 5.5 5.0-9.0 - ?Glucose Urine UA Negative Neg ative - mg/dL ?Urine Blood Negative Negative - ?Specific [place] - Urine 1.025 1.005-1.025 - ?Urine Protein Negative Neg-Tr radha - mg/dL ?Urine Ketones Negative Negati ve - mg/dL ?Nitrite Urine Negative Negati ve - ?Leukocyte Esterase Urine Trace A Negative - ?RBC Urine 0-2 0-2 - /HPF ?WBC Urine 0-5 0-5 - /HPF ?Squamous Epithelial Cell Urine 0-2 0-2 - /HPF ?Bacteria Urine None Seen None Seen - ?Hyaline Casts Urine 0-2 0-2 - /LPF * Examination: ???General Examination: ?GENERAL APPEARANCE:?well developed, well nourished, in no acute distress.?HEAD:?normocephalic, atraumatic.?EYES:?pupils equal, round, reactive to light and accommodation, sclera non-icteric.?EARS:?normal.?ORAL CAVITY:?mucosa moist.?THROAT:?clear.?NECK/THYROID:?neck supple, full range of motion, no cervical lymphadenopathy, no bruits.?SKIN:?warm and dry, no suspicious lesions.?HEART:?regular rate and rhythm, S1, S2 normal, no murmurs.?LUNGS:?clear to auscultation bilaterally.?BREASTS:?No mass, no lump.?ABDOMEN:?soft, nontender, nondistended, bowel sounds present, normal, no organomegaly , no masses palpable.?RECTAL EXAM:?done by casting carrier.?FEMALE GENITOURINARY:?done by casting carrier.?EXTREMITIES:?no clubbing, cyanosis, or edema.?NEUROLOGIC:?nonfocal, motor strength normal upper and lower extremities, sensory exam intact.? Assessment: * Assessment: 1.?Acquired hypothyroidism - E03.9 (Primary)?2.?Prediabetes - R73.03?3.?Primary osteoarthritis, right hand - M19.041?4.?Vitamin D deficiency - E55.9?5.?MARA (obstructive sleep apnea) - G47.33?6.?CAD in [place] artery - I25.10?7.?Essential hypertension - I10?8.?Intrinsic eczema - L20.84?9.?Depression screening - Z13.31? Plan: * Treatment: 2.?Prediabetes? Notes: better a1c, will continue to monitor, no need for medication at this time?? 3.?Primary osteoarthritis, r ight hand? Continue Celecoxib Capsule, 200 MG, TAKE 1 CAPSULE BY MOUTH EVERY DAY WITH FOOD.?? Notes: stable, will continue current regiment?? 4.?Vitamin D deficiency? Notes: stable, will continue current regiment?? 5.?MARA (obstructive sleep ap anupama)? Notes: says that she is getting more episodes of apnea and longer. needs sleep study/ patient is refusing to have this done?? 6.?CAD in [place] artery? Continue Atorvastatin Calcium Tablet, 80 MG, take 1 tablet by mouth once daily, Orally, Once a day.?? Notes: stable, will continue current regiment?? 7.?Essential hypertension? Notes: doing well, will continue current regiment?? 8.?Intrinsic eczema? Notes: stable, will continue current regiment?? 9.?Depression screening? Notes: negative screen?? 10.?Others? Notes: did have surgery and is doing well/ NEED D/C SUMMARY [facility] and dr muller note/ request will be sent?? * Procedure Codes:?69512 VENIP UNCT, ROUTINE* * Follow Up:?6 Months * * Sign off status: Completed true * Provider:?Murphy Villagomez MD Date:?1 07/08/2023 Generated for Kerry tierney/Zulieka/eTransmitting on:?11/22/2024 11:34 AM EDT History and Physical Notes * HPI (History [...] had two or more falls in the year?: Yes Communication Needs Communication Needs Does the patient have a hearing impairment: No Does the patient have a vision impairmen t?: Yes ?If yes, what is the vision impairment?: Glasses Does the patient have a cognition impair ment?: No Examination Category Sub-Category Detail Notes Category Not es General Examination GENERAL APPEARANCE: well dev eloped, well nourished, in no acute distress HEAD: normocephalic, atrau matic EYES: pupils equal, round, reactive to light and accommodation, sclera non- icteric EARS: normal THROAT: clear NECK/THYROID: neck supple, [...] mass, no lump RECTAL EXAM: done by casting carrier FEMALE GENITOURINARY: done by casting carrier ORAL CAVITY: mucosa moist
--- OUTSIDE RECORDS SUMMARY | 2024-11-22 11:35 | XMS_ITS | Patient Health Record ---
Author Organization Murphy Villagomez MD Address [address] [place], [place] [id number] Care Team Providers Care Electro Mechanic Name Role Phone Murphy Villagomez Primary Care Provider Allergies Allergen (clinical drug ingredient) Drug/Non Drug Allergy documented on EMR Reaction Allergy Type Onset Date Status Latex latex (uncoded) rash Allergy Acti ve Results Component Value Reference Range Notes Complete Blood Count Auto Di ff Reviewed date:05/01/2024 12:41:23 PM Interpretation: Performing Lab:[facility], [address] [place] [phone] Notes/Report: White Blood Count 4.6 4.8-10.8 X10*3/uL [...] 0.0-0.2 /100WBC Neutrophils Absolute Auto 2.2 2.0-8.3 x10*3/uL Imm Gran Abs Auto 0.01 0.00-0.03 X10*3/uL Lymphocytes Absolute Auto 1.6 1.2-4.9 X10*3/uL Monocytes Absolute Auto 0.5 0.1-1.2 X10*3/uL Eosinophils Absolute Auto 0.2 0.0-0.4 X10*3/uL Basophils Absolute Auto 0.0 0.0-0.2 X10*3/uL NRBC Abs Auto 0.000 0.0-0.012 X10*3/uL Comprehensive [place]. Panel Fa st Reviewed date:05/01/2024 12:41:40 PM Interpretation: Performing Lab:[facility], [address] [place] [phone] Notes/Report: Sodium 143 135-145 mmol/L Potassium 4.5 3.3-5.1 mmol/L Chloride 108 96-108 mmol/L Carbon Dioxide 28 22-29 mmol/L Anion Gap 12 12-20 Blood Urea Nitrogen 22 9-16 mg/dL Creatinine 0.81 0.5-1.4 mg/dL Estimated Glomerular Filt Rate > 60 NOTE: For -[place]and[place] individuals, multiply the result by 1.210. Chronic [...] Panel Reviewed date:05/01/2024 12:24:30 PM Interpretation: Performing Lab:[facility], [address] [place] [phone] Notes/Report: Triglycerides 87 <150 mg/dL Desirable Triglyceride: [...] Reviewed date:05/10/2024 08:26:30 AM Interpretation:MAURISIO 05/08/24 Performing Lab:[address] [phone] Notes/Report: Vitamin D 25-OH Total 103.6 >30 [...] Random Reviewed date:05/01/2024 04:29:20 PM Interpretation: Performing Lab:[facility], [address] [place] [phone] Notes/Report: Creatinine Urine 170.97 Microalbumin Urine 9.0 Microalbum/Creatinine Ratio Ur 5.2 <30 ug/mg cr Albumin/Creatinine Ratio Reference Ranges: Normal: < 30 ug/mg creatinine Microalbuminuria: 30 - 300 ug/mg creatinine Clinical Albuminuria: > 300 ug/mg creatinine Hemoglobin A1c Reviewed date:05/01/2024 12:09:09 PM Interpretation: Performing Lab:[facility], [address] [place] [phone] Notes/Report: Hemoglobin A1c % 6.0 <6.0 % [...] average glucose, using the formula of the S2N-Esmirby Average Glucose study (ADAG), Diabetes Care, Vol.31,#8, Feb. 2007 UA ClnCatch+Micro w/rflx Cul t Reviewed date:05/01/2024 12:41:03 PM Interpretation: Performing Lab:[facility], [address] [place] [phone] Notes/Report: Urine, Clean Catch Color Urine Yellow Appearance Urine Clear PH 5.5 5.0-9.0 Glucose Urine UA Negative Negative mg/dL Urine Blood Negative Negative Specific [place] - Urine 1.025 1.005-1.025 Urine Protein Negative Neg-Trace mg/dL Urine Ketones Negative Negative mg/dL Nitrite Urine Negative Negative Leukocyte Esterase Urine Trace Negative RBC Urine 0-2 0-2 /HPF WBC Urine 0-5 0-5 /HPF Squamous Epithelial Cell Urine 0-2 0-2 /HPF Bacteria Urine None Seen None Seen Hyaline Casts Urine 0-2 0-2 /LPF Hemoglobin A1c (Not yet revi ewed by provider) Interpretation: Performing Lab:[facility], [address] [place] [phone] Notes/Report: Hemoglobin A1c % 6.0 <6.0 % [...] average glucose, using the formula of the H6L-Epthlpn Average Glucose study (ADAG), Diabetes Care, Vol.31,#8, Feb. 2007 TSH reflex Free T4 Reviewed date:05/09/2024 12:22:05 PM Interpretation: Performing Lab:[facility], [address] [place] [phone] Notes/Report: TSH reflex Free T4 0.21 0.32-4.0 uIU/mL MM tomosynthesis screening B I Reviewed date:04/22/2024 05:18:33 PM Interpretation: Performing Lab: Notes/Report: [facility] [address] [place] [address] Mammography Report Signed Patient: Margaret Dick MR#: [id number] 1 : 1950 Acct:[id number] Age/Sex: 73 / F ADM Date: 04/10/24 Loc: HO.MAMMO Attending Dr: Murphy Villagomez MD Ordering Physician: Murphy Villagomez MD Results: 1Ne gative Date of Service: 04/10/24 Follow Up: 1 Year From [facility] Mammogram Procedure(s): MM tomosynthesis screening BI Accession Number(s): [id number] cc: Murphy Villagomez MD EXAMINATION: MM SCREENING DIGITAL BREAST TOMOSYNTHESIS, BILATERAL CLINICAL INFORMATION: Screening. Asymptomatic. COMPARISON: Mammography: Comparison is made with available priors TECHNIQUE: Digital breast mammography with tomosynthesis is performed in both the craniocaudal and mediolateral oblique views along with computer-aided detection (CAD). FINDINGS: There are scattered areas of fibroglandular density (ACR BI-RADS breast composition Category b). There are no significant masses, abnormal calcifications, or other abnormalities. MM/MM tomosynthesis screening BI IMPRESSION: No mammographic evidence of malignancy. ASSESSMENT: BI-RADS BI-RADS 1 - Negative RECOMMENDATION: Routine annual mammography screening. 1 year F/U This examination should not preclude the clinical evaluation of a suspicious palpable abnormality. This patient's information was entered into a reminder system with a target due date for their next mammogram. Electronically signed by: Jannet Rincon DO 04/20/2024 04:45 PM EDT RP Dictated By: Jannet Rincon DO Signed By: <Electronically signed by Jannet Rincon DO in OV> 04/20/24 1645 DD/ 09 TD/TT: 04/10/24 0920 Acid Tester: [facility] [address] [place] [address] Mammography Report Signed Patient: Cj Dick MR#: [id number] 1 : 1950 Acct:[id number] Age/Sex: 73 / F ADM Date: 04/10/24 Loc: HO.MAMMO Attending Dr: Murphy Villagomez MD Ordering Physician: Murphy Villagomez MD Results: 1Ne gative Date of Service: 04/10/24 Follow Up: 1 Year From [facility] Mammogram Procedure(s): MM tomosynthesis screening BI Accession Number(s): [id number] cc: Murphy Villagomez MD EXAMINATION: MM SCREENING DIGITAL BREAST TOMOSYNTHESIS, BILATERAL CLINICAL INFORMATION: Screening. Asymptomatic. COMPARISON: Mammography: Comparison is made with available priors TECHNIQUE: Digital breast mammography with tomosynthesis is performed in both the craniocaudal and mediolateral oblique views along with computer-aided detection (CAD). FINDINGS: There are scattered areas of fibroglandular density (ACR BI-RADS breast composition Category b). There are no significant masses, abnormal calcifications, or other abnormalities. MM/MM tomosynthesis screening BI IMPRESSION: No mammographic evidence of malignancy. ASSESSMENT: BI-RADS BI-RADS 1 - Negative RECOMMENDATION: Routine annual mammography screening. 1 year F/U This examination should not preclude the clinical evaluation of a suspicious palpable abnormality. This patient's information was entered into a reminder system with a target due date for their next mammogram. Electronically cheryl d by: Jannet Rincon DO 04/20/2024 04:45 PM EDT Dictated By: Jannet Rincon DO Signed By: <Electronically signed by Jannet Rincon DO in OV> 04/20/24 1645 DD/ 09 TD/TT: 04/10/24 09 Acid Tester: Howard Lopez Reviewed date:05/01/2024 12:06:55 PM Interpretation: Performing Lab:[facility], [address] [place] [phone] Notes/Report: Howard Lopez See Note Specimen held untested for 24 hours; Call to request Chemistry testing. Free T4 (Free Thyroxine) Reviewed date:05/09/2024 12:21:57 PM Interpretation: Performing Lab:[facility], [address] [place] [phone] Notes/Report: Free T4 (Free Thyroxine) 1.27 0.71-1.85 ng/dL Howard Lopez Reviewed date:05/08/2024 04:46:51 PM Interpretation: Performing Lab:[facility], [address] [place] [phone] Notes/Report: Howard Lopez See Note Specimen held untested for 24 hours; Call to request Chemistry testing. Howard Lopez (Not yet reviewed by provider) Interpretation: Performing Lab:[facility], [address] [place] [phone] Notes/Report: Howard Lopez See Note Specimen held untested for 24 hours; Call to request Chemistry testing. Reason For Referral No Information Medications Medication SIG (Take, Route, Frequency, Duration) Notes Start Date End Date Status Atorvastatin Calcium 80 MG take 1 tablet by mouth once daily Orally Once a day Active Celecoxib 200 MG TAKE 1 CAPSULE BY MO UTH EVERY DAY WITH FOOD for 90 Active Magnesium 400 MG as directed Orally Not-Taking Levothyroxine Sodium 88 MCG TAKE 1 TABLET BY MOUTH EVERY MORNING ON AN EMPTY STOMACH Active amLODIPine Besylate 5 MG TAKE 1 TABLET B Y MOUTH EVERY DAY for 90 Active Vitamin D 125 MCG (5000 UT) 1 tablet Orally every other day Active Amoxicillin 500 MG 4 capsule Orally one hour before procedure for 10 days 09/26/2020 Active Aspirin 81 MG 1 tablet Orally Once a day Active Clobetasol Propionate 0.05 % 1 application to affected area Externally Twice a day 12/24/2011 Active Magnesium 400 MG as directed Orally Active Immunizations Vaccine Route Administration Date Status Comme nts Flu Vaccine IM Intramuscular 04/05/2011 Administered Flu Vaccine Unknown 06/15/2012 Administered Fluarix Quadrivalent IM Intramuscular 03/19/2014 Administe red PPSV23 (Pnemovax) IM Intramuscular 03/29/2014 Administered Fluarix Quadrivalent IM Intramuscular 03/24/2015 Administe red Fluarix Quadrivalent IM Intramuscular 05/20/2016 Administe red Prevnar 13 IM Intramuscular 01/31/2017 Administered Fluarix Quadrivalent IM Intramuscular 04/01/2017 Administe red Fluarix Quadrivalent Unknown 04/17/2018 Administered [facility] Fluarix Quadrivalent IM Intramuscular 03/20/2019 Administe red PPSV23 (Pnemovax) IM Intramuscular 09/25/2019 Administered TDaP Unknown 08/05/2017 Administered [facility] [place] Covid Vaccine Unknown 09/14/2020 Administered Moderna Covid Vaccine Unknown 10/05/2020 Administered Pfizer Influenza High Dose IM Intramuscular 04/02/2021 Administer ed Influenza High Dose IM Intramuscular 04/06/2022 Administer ed Fluarix Quadrivalent Unknown 04/28/2023 Refused Fluarix Quadrivalent Unknown 05/03/2023 Refused Flu Vaccine Unknown 03/19/2014 Pending Social History Tobacco Use: Social History Observation [...] Problem Status W/U Status Risk Notes Problem 70535920 Age-related osteoporosis without current pathological fracture (M81.0) Active confirmed Problem 635620108 Abnormal ECG (R94.31) Active confirmed Problem 89776789 Vitamin D defici ency (E55.9) Active confirmed Problem 1898297851714119 Primary osteoarthritis, right hand (M19.041) Active confirmed Problem Disorder of bone (36319426) Disorder of bone, unspecified (M89.9) Active confirmed osteopen ia Problem 20523747 Essential hypertension (I10) Active confirmed Problem 8573070 Psoriasis (L40.9) Active confirmed Problem 137582070 Acquired hypothyroidism (E03.9) Active confirmed Problem 22195527 Intrinsic eczema (L20.84) Active confirmed Problem 5987571319141 Coronary artery disease 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.10) Active confirmed Problem 465949343 Abnormal mammogr am (R92.8) Active confirmed Problem 702228246 Cervical arthrit is (M46.92) Active confirmed Problem 8441015 Former smoker (Z87.891) Active confirmed Problem 535520186 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) Active confirmed Problem 135527280 Prediabetes (R73.03) Active confirmed Problem 376352876 Pure hypercholesterolemia (E78.00) Active confirmed Problem 98212242 MARA (obstructive sleep apnea) (G47.33) Active confirmed Problem 871722872 Arthritis of kne e (M17.10) Active confirmed Problem 2568393120248 CAD in nikolski ar ellen (I25.10) Active confirmed Problem 495254930 H/O TIA (transie nt ischemic attack) and stroke (Z86.73) Active confirmed Problem 972256388 History of lung cancer (Z85.118) Active confirmed Vital Signs Blood pressure diastolic 62 mm Hg 05/08/2024 Height 60.5 in 05/08/2024 Blood pressure systolic 114 mm Hg 05/08/2024 Weight 126 lbs 05/08/2024 BMI 24.20 kg/m2 05/08/2024 Encounters Encounter Location Date Provider Diagnosis Murphy Villagomez MD [address] [place] [address] Drive [address] [place] [id number] 05/01/2024 Murphy Villagomez Acquired hypothyroid ism E03.9 ; Pure hypercholesterolemia E78.00 ; Vitamin D deficiency E55.9 ; Prediabetes R73.03 and Essential hypertension I10 Murphy Villagomez MD [address] [place] [id number] 11/22/2024 Murphy Villagomez Pure hypercholestero lemia E78.00 and Prediabetes R73.03 Murphy Villagomez MD [address] [place] [address] Drive [address] [place] [id number] 05/08/2024 Murphy Villagomez Acquired hypothyroid ism E03.9 ; Prediabetes R73.03 ; Primary osteoarthritis, right hand M19.041 ; Vitamin D deficiency E55.9 ; MARA (obstructive sleep apnea) G47.33 ; CAD in nikolski artery I25.10 ; Essential hypertension I10 ; Intrinsic eczema L20.84 and Depression screening Z13.31 Murphy Villagomez MD [address] [place] [address] Drive [address] [place] [id number] 05/18/2024 Murphy Villagomez Assessments Encounter Date Diagnosis (ICD Code) Assessment Notes Treatment Notes Treatment Clinical Notes Section Notes 05/01/2024 Acquired hypothyroid ism (ICD-10 - E03.9) 05/01/2024 Pure hypercholesterolemia (ICD-10 - E78.00) 11/22/2024 Pure hypercholesterolemia (ICD-10 - E78.00) 05/08/2024 Acquired hypothyroid ism (ICD-10 - E03.9) pending lab 05/08/2024 Prediabetes (ICD-10 - R73.03) better a1c, will continue to monitor, no need for medication at this time 05/01/2024 Vitamin D deficiency (ICD-10 - E55.9) 11/22/2024 Prediabetes (ICD-10 - R73.03) 05/08/2024 Primary osteoarthrit is, right hand (ICD-10 - M19.041) stable, will continue current regiment 05/01/2024 Prediabetes (ICD-10 - R73.03) 05/08/2024 Vitamin D deficiency (ICD-10 - E55.9) stable, will continue current regiment 05/01/2024 Essential hypertensi on (ICD-10 - I10) 05/08/2024 MARA (obstructive sle ep apnea) (ICD-10 - G47.33) says that she is getting more episodes of apnea and longer. needs sleep study/ patient is refusing to have this done 05/08/2024 CAD in nikolski artery (ICD-10 - I25.10) stable, will continue current regiment 05/08/2024 Essential hypertensi on (ICD-10 - I10) doing well, will continue current regiment 05/08/2024 Intrinsic eczema (IC D-10 - L20.84) stable, will continue current regiment 05/08/2024 Depression screening (ICD-10 - Z13.31) negative screen 05/08/2024 Other did have surgery and is doing well/ NEED D/C SUMMARY [facility] and dr muller note/ request will be sent Plan Of Treatment Pending Test Test Name Order Date Electrocardiogram (EKG) 08/05/2016 ECHO EXAM OF HEART 11/26/2014 XR DORSAL THORACIC SPINE 11/26/2011 Holter monitor 12/05/2014 24 hour holter monitor 11/11/2011 EEG 11/11/2011 ECHO 12/05/2014 Liver Panel 11/22/2024 Glucose Fasting 11/22/2024 Lipid Panel with Reflex 11/22/2024 Hold Gold 11/22/2024 MM screening mammo BI 09/26/2020 Hemoglobin A1c 11/22/2024 Future Test Test Name Order Date BONE DENSITY DEXA 03/26/2021 Next Appt Details Provider Name:Murphy Melgoza ier, 11/29/2024 10:45:00 AM, [address] [place] [address], [address], [phone], Provider Name:Murphy Melgoza ier, 05/06/2025 07:45:00 AM, [address] [place] [address], [address], [phone], Provider Name:Murphy Melgoza ier, 05/13/2025 01:00:00 PM, [address] [place] [address], [address], [phone], Insurance Providers Payer Name Payer Address Payer Phone Subscriber Number Group Number Insured Name Patient Relationship to Insured Coverage Start Date Coverage End Date [employer] [address] [place] [address] [id number] Margaret Dick Self - patient is the insured [address] [address] [phone] [id number] Margaret Dick Self - patient is the insured Medical (General) History Medical History History ICD Code colonoscopy 1999; 05/19/2012 - Due 05/23 22, 08/11/21 done, repeat 10 yrs scheduling appt with Dr. Bella 04/16 normal trace tricuspic regurge. moniter normal 2014
[2024-11-22 11:45] LABS: Alanine Aminotransferase 27 U/L (0-31); Albumin Level 4.3 g/dL (3.5-5.0); Alkaline Phosphatase 61 U/L (39-117); Aspartate Amino Transferase 31 U/L (5-31); Bilirubin Direct 0.3 mg/dL (0.0-0.5); Bilirubin Total 0.8 mg/dL (0.0-1.0); Cholesterol 142 mg/dL (<200); Glucose Fasting 103 mg/dL (60-99); HDL Cholesterol 47 mg/dL (>40); LDL Cholesterol Calculated 80 mg/dL (<100); Total Protein 7.4 g/dL (6.5-8.0); Triglycerides 75 mg/dL (<150)
[2024-11-22 13:34] LABS: Reflex LDLD? No
== END 2024-11-22 10:52 | disposition home or self-care (01) ==
LOC: HO.LNP 10:51
PROVIDERS: Visit Provider Internal Medicine
DX: E78.00 Pure hypercholesterolemia, unspecified (principal); R73.03 Prediabetes
CPT/HCPCS: 80061; 80076; 82947; 83036

== ENCOUNTER 2025-04-25 09:19 | Outpatient (REF) | payer MEDICARE, MEDICAID, SELFPAY | END 2025-04-25 09:20 | disposition home or self-care (01) | LOC: HO.MAMMO 09:19 | PROVIDERS: PCP Internal Medicine; Visit Provider Internal Medicine | DX: Z12.31 Encounter for screening mammogram for malignant neoplasm of breast (principal) | CPT/HCPCS: 77063; 77067; 93005; 99212 ==

== ENCOUNTER → 2025-04-25 11:00 | Outpatient (BNV) | payer MEDICARE, MEDICAID, SELFPAY | PROVIDERS: PCP Internal Medicine; Visit Provider Radiology Body Imaging | DX: Z12.31 Encounter for screening mammogram for malignant neoplasm of breast (principal) | CPT/HCPCS: 77063; 77067 ==

== ENCOUNTER 2025-04-25 12:24 | Outpatient (AMB) | payer MEDICARE, MEDICAID, SELFPAY ==
--- NOTE | 2025-04-25 12:30 | MHC.OFFVIS ---
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 In the past, she was seen for preoperative evaluation for knee surgery. In that context a routine EKG had shown possible inferior wall infarction. Subsequently she had stress testing as well as coronary CTA. She has nonobstructive CAD. She has got no cardiac symptoms and she states she feels fine. [facility] Medical History Essential hypertension HTN (hypertension) Atherosclerotic cardiovascular disease Diabetes Thyroid disease Hypercholesterolemia Surgical History H/O colonoscopy History of total left knee replacement History of carpal tunnel release H/O thyroidectomy Family History Father No problems noted. Mother No problems noted. Social History Alcohol intake: current Alcohol intake frequency: holidays/special occasions only Patient Tobacco Use Status: Former Tobacco user Current occupational status: retired Current occupation: right handed Review of Systems Const Denies chills, Denies fatigue, Denies fever(s), Denies frequent falls, Denies weakness, Denies weight gain and Denies weight loss ENT Denies dizziness Card Denies chest pain, Denies leg edema, Denies lightheadedness, Denies palpitations, Denies dyspnea and Denies dyspnea on exertion Resp Denies cough, Denies dyspnea and Denies dyspnea on exertion GI Denies hematochezia Musc Denies abnormal gait, Denies muscle weakness, Denies numbness, Denies radiating pain into limb and Denies tingling Neuro Denies abnormal gait, Denies dizziness, Denies frequent falls, Denies numbness, Denies tingling and Denies weakness Endo Denies fatigue and Denies palpitations Physical Exam Vital Signs: Last Vital Signs Pulse 76 04/25/25 12:33 BP 140/72 H 04/25/25 12:33 BMI result Body Mass Index 25.5 Const General: comfortable and no acute distress Orientation/consciousness: patient oriented x3 HEENT Other: Unremarkable Head: Yes normal to inspection Neck Neck: Yes normal visual inspection Chest Chest palpation & inspection: normal inspection of the chest Resp Auscultation: clear to auscultation bilaterally Cardio Palpation: normal PMI Heart sounds: S1 normal heart sound present, S2 normal heart sound present, no gallops, no murmurs and no rubs GI Palpation (GI): Soft to palpation Back/Spine/Pelvis Other: unremarkable Skin General skin exam: no rashes or lesions noted Neuro General: patient oriented x3 Extrem General: Yes normal to inspection Psych Mental Status: mental status grossly normal Office Procedures EKG Details: EKG with sinus rhythm at 76/Min; nonspecific ST-T changes; normal ID; corrected QT is slightly prolonged at 481 milliseconds. [id number], Complete Assessment & Plan Assessment & Plan (1) Atherosclerotic cardiovascular disease: Code(s): I25.10 - Atherosclerotic heart disease of [place] coronary artery without angina pectoris Category: Medical (2) Essential hypertension: Code(s): I10 - Essential (primary) hypertension Category: Medical (3) Other and unspecified hyperlipidemia: Code(s): E78.5 - Hyperlipidemia, unspecified Category: Medical (4) Prolonged QT interval: Code(s): R94.31 - Abnormal electrocardiogram [ECG] [EKG] Category: Medical Plan Cardiac studies reviewed. Echocardiogram with LVEF 60-65%, mild diastolic dysfunction and otherwise unremarkable. Myocardial perfusion imaging study with ischemia in the mid to distal anterior wall. Coronary CTA with mild calcification the left main; mild narrowing of proximal LAD; mild calcification of circumflex; mild calcification of right coronary artery and distal 50% stenosis. Overall, stable coronary disease without any symptoms. Continue current meds including aspirin, amlodipine, atorvastatin. Her corrected QT was slightly prolonged last time at 475 milliseconds. Today, 481 milliseconds. We discussed about this today. Caution with antibiotics and other medications that may QT interval. Follow up in one year. In the interim, call with concerns. Coding Level of Care Code Est Pt Level 4 (86535) Complex EM visit Add On G2211 Diagnoses Atherosclerotic cardiovascular disease I25.10 Essential hypertension I10 Other and unspecified hyperlipidemia E78.5 Prolonged QT interval R94.31 CPT Codes EKG - CPT: 09104-Tlcgqymunnakfcddr, Complete ([id number])
[2025-04-25 12:33] VITALS: BP 140/72; PULSE 76; BMI 25.5
== END 2025-04-25 13:03 | disposition home or self-care (01) ==
LOC: HO.HCS 12:25
PROVIDERS: PCP Internal Medicine; Visit Provider Internal Medicine
DX: I25.10 Atherosclerotic heart disease of native coronary artery without angina pectoris (principal); I10 Essential (primary) hypertension; E78.5 Hyperlipidemia, unspecified; R94.31 Abnormal electrocardiogram [ECG] [EKG]
CPT/HCPCS: 93010; 99214; G2211

== ENCOUNTER 2025-05-06 10:28 | Outpatient (REF) | payer MEDICARE, MEDICAID, SELFPAY ==
--- OUTSIDE RECORDS SUMMARY | 2024-05-01 02:30 | XMS_ITS ---
Author Organization Murphy Villagomez MD Address [address] [place], [place] [id number] Care Team Providers Care Workforce Manager Name Role Phone Murphy Villagomez Primary Care Provider Results Component Value Reference Range Notes Complete Blood Count Auto Di ff Reviewed date:05/01/2024 12:41:23 PM Interpretation: Performing Lab:[facility], [address] [place] [phone] Notes/Report: White Blood Count 4.6 4.8-10.8 X10*3/uL Red Blood Count 4.76 4.20-5.50 X10*6/uL Hemoglobin 14.4 12.0-16.0 g/dl Hematocrit 44.2 37.0-47.0 % Mean Corpuscular Volume 92.9 80.0-98.0 fL Mean Corpuscular Hemoglobin 30.3 27.0-33.0 pg Mean Corpuscular HGB Conc 32.6 31.0-35.0 g/dl Red Cell Distribution Width 13.3 11.0-16.0 % Platelet Count 259 160-400 X10*3/uL Mean Platelet Volume 9.7 9.4-12.3 fL Neutrophils Percent Auto 48.1 45-73 % Imm Gran Pct Auto 0.2 0.0-0.4 % Lymphocytes Percent Auto 35.3 20-40 % Monocytes Percent Auto 11.2 2-11 % Eosinophils Percent Auto 4.3 0-4 % Basophils Percent Auto 0.9 0-2 % NRBC Pct Auto 0.0 0.0-0.2 /100WBC Neutrophils Absolute Auto 2.2 2.0-8.3 x10*3/u L Imm Gran Abs Auto 0.01 0.00-0.03 X10*3/uL Lymphocytes Absolute Auto 1.6 1.2-4.9 X10*3/u L Monocytes Absolute Auto 0.5 0.1-1.2 X10*3/uL Eosinophils Absolute Auto 0.2 0.0-0.4 X10*3/u L Basophils Absolute Auto 0.0 0.0-0.2 X10*3/uL NRBC Abs Auto 0.000 0.0-0.012 X10*3/uL Comprehensive [place]. Panel Fa st Reviewed date:05/01/2024 12:41:40 PM Interpretation: Performing Lab:[facility], [address] [place] [phone] Notes/Report: Sodium 143 135-145 mmol/L Potassium 4.5 3.3-5.1 mmol/L Chloride 108 96-108 mmol/L Carbon Dioxide 28 22-29 mmol/L Anion Gap 12 12-20 Blood Urea Nitrogen 22 9-16 mg/dL Creatinine 0.81 0.5-1.4 mg/dL Estimated Glomerular Filt Rate > 60 NOTE: For -English individuals, multiply the result by 1.210. Chronic Kidney Disease: Estimated GFR < 60 mL/min/1.73m2 Severe Kidney Disease: Estimated GFR < 15 mL/min/1.73m2 Glucose Fasting 100 60-99 mg/dL A fasting glucose from 100-125 mg/dl is considered impaired (pre-diabetes). Calcium 9.3 8.4-10.2 mg/dL Bilirubin Total 0.5 0.0-1.0 mg/dL Aspartate Amino Transferase 27 5-31 U/L Alanine Aminotransferase 19 0-31 U/L Total Protein 7.4 6.5-8.0 g/dL Albumin Level 4.0 3.5-5.0 g/dL Alkaline Phosphatase 67 39-117 U/L Lipid Panel Reviewed date:05/01/2024 12:24:30 PM Interpretation: Performing Lab:[address] [phone] Notes/Report: Triglycerides 87 <150 mg/dL Desirable Triglyceride: less than 150 mg/dL Borderline High Triglyceride 150-199 mg/dL High Triglyceride: 200-499 mg/dL Very High Triglyceride: greater than or equal to 5OO mg/dL Cholesterol 146 <200 mg/dL Desirable Cholesterol: less than 200 mg/dL Borderline High Cholesterol: 200-239 mg/dL High Cholesterol: greater than 239 mg/dL LDL Cholesterol Calculated 77 <100 mg/dL Desirable LDL: less than 100 mg/dL Near Optimal/Above Optimal LDL: 110-129 mg/dL Borderline High LDL: 130-159 mg/dL High LDL: 160-189 mg/dL Very High LDL: greater than or equal to 190 mg/dL HDL Cholesterol 52 >40 mg/dL Desirable HDL: greater than 40 mg/dL Note: This HDL assay may give artificially low results in patients with liver disease. Vitamin D 25-OH Total Reviewed date:05/10/2024 08:26:30 AM Interpretation:MAURISIO 05/08/24 Performing Lab:[address] [phone] Notes/Report: Vitamin D 25-OH Total 103.6 >30 ng/mL Health Based Reference Values* < 20 ng/mL Deficient 20-30 ng/mL Insufficient > 30 ng/mL Sufficient *Saroj TRAYLOR. N Engl J Med. 2007;357:266-280 Care must be taken in interpreting Vitamin D results from different laboratories and methodologies. Published data demonstrated that results from patients undergoing hemodialysis may show a negative bias when tested with various automated 25-OH vitamin D assays when compared to LC-MS/MS. When testing samples from patients whose predominant form of Vitamin D is Vitamin D2, such as patients receiving Vitamin D2 supplementation, results that are subtherapeutic should be confirmed with another method such as LC-MS/MS. Microalbumin, Random Reviewed date:05/01/2024 04:29:20 PM Interpretation: Performing Lab:[facility], [address] [place] [phone] Notes/Report: Creatinine Urine 170.97 Microalbumin Urine 9.0 Microalbum/Creatinine Ratio Ur 5.2 <30 ug/mg cr Albumin/Creatinine Ratio Reference Ranges: Normal: < 30 ug/mg creatinine Microalbuminuria: 30 - 300 ug/mg creatinine Clinical Albuminuria: > 300 ug/mg creatinine Hemoglobin A1c Reviewed date:05/01/2024 12:09:09 PM Interpretation: Performing Lab:[address] [phone] Notes/Report: Hemoglobin A1c % 6.0 <6.0 % Hemoglobin A1C Reference Range Adults: 4.8 - 6.0 % Non diabetic: < 6.0 % Goal: < 7.0 % Additional Action Suggested: > 8.0 % Note: Hemoglobin A1c results are invalid for patients with abnormal amounts of HbF. Blood transfusions may impact the HbA1c concentration in the patient sample. Estimated Average Glucose 126 eAG = Estimated average glucose which is %A1C expressed as average glucose, using the formula of the T5V-Wypwxod Average Glucose study (ADAG), Diabetes Care, Vol.31,#8, Feb. 2007 UA ClnCatch+Micro w/rflx Cul t Reviewed date:05/01/2024 12:41:03 PM Interpretation: Performing Lab:[facility], [address] [place] [phone] Notes/Report: Urine, Clean Catch Color Urine Yellow Appearance Urine Clear PH 5.5 5.0-9.0 Glucose Urine UA Negative Negative mg/dL Urine Blood Negative Negative Specific [place] - Urine 1.025 1.005-1.025 Urine Protein Negative Neg-Trace mg/dL Urine Ketones Negative Negative mg/dL Nitrite Urine Negative Negative Leukocyte Esterase Urine Trace Negative RBC Urine 0-2 0-2 /HPF WBC Urine 0-5 0-5 /HPF Squamous Epithelial Cell Urine 0-2 0-2 /HPF Bacteria Urine None Seen None Seen Hyaline Casts Urine 0-2 0-2 /LPF REASON FOR VISIT yearly fasting labs Encounters Encounter Location Date Provider Diagnosis Murphy Villagomez MD [address] [place], [place] [id number] 05/01/2024 Murphy Villagomez Acquired hypothyroid ism E03.9 ; Pure hypercholesterolemia E78.00 ; Vitamin D deficiency E55.9 ; Prediabetes R73.03 and Essential hypertension I10 Assessments Encounter Date Diagnosis (ICD Code) Assessment Notes Treatment Notes Treatment Clinical Notes Section Notes 05/01/2024 Acquired hypothyroid ism (ICD-10 - E03.9) 05/01/2024 Pure hypercholesterolemia (ICD-10 - E78.00) 05/01/2024 Vitamin D deficiency (ICD-10 - E55.9) 05/01/2024 Prediabetes (ICD-10 - R73.03) 05/01/2024 Essential hypertensi on (ICD-10 - I10) Plan Of Treatment Next Appt Details Provider Name:Murphy Melgoza ier, 05/13/2025 01:00:00 PM, [address], [address], [place], [place], [id number], Progress Notes * Margaret PACHECO KDOB:[birth year] (74 yo F)Acc No.[id number]:05/01/2024 Progress Note Patient: Margaret NIELSEN Provider: Tejinder Villagomez MD :1950 A ge:73 Y S ex:Female Date:05/01/2024 Address: [address] [place] [address] Subjective: * Chief Complaints: * 1 . Yearly fasting labs. * Medical History: Objective: * Vitals: Assessment: * Assessment: 1. A cquired hypothyroidism - E03.9 (Primary) 2 . P ure hypercholesterolemia - E78.00 3 . V itamin D deficiency - E55.9 4 . P rediabetes - R73.03 5 . E ssential hypertension - I10 Plan: * Treatment: ?LAB: Microalbumin, Random (Collection Date & Time - 05/01/2024 07:30 AM) ?LAB: Hemoglobin A1c (Collection Date & Time - 05/01/2024 07:30 AM) ?LAB: UA ClnCatch+Micro w/rflx Cult (Collection Date & Time - 05/01/2024 07:30 AM)2.?Pure hypercholesterolemia?LAB: Complete Blood Count Auto Diff (Collection Date & Time - 05/01/2024 07:30 AM) ?LAB: Comprehensive [place]. Panel Fast (Collection Date & Time - 05/01/2024 07:30 AM) ?LAB: Lipid Panel (Collection Date & Time - 05/01/2024 07:30 AM) ?LAB: Vitamin D 25-OH Total (Collection Date & Time - 05/01/2024 07:30 AM)* Murphy Villagomez 05/01/2024 12:25:01 PM EDT > must see vit Michaelle Chirinos 05/10/2024 08:23:35 AM EST > PATIENT KEPT APPT WITH DR ?LAB: Microalbumin, Random (Collection Date & Time - 05/01/2024 07:30 AM) ?LAB: Hemoglobin A1c (Collection Date & Time - 05/01/2024 07:30 AM) ?LAB: UA ClnCatch+Micro w/rflx Cult (Collection Date & Time - 05/01/2024 07:30 AM)3.?Vitamin D deficiency?LAB: Complete Blood Count Auto Diff (Collection Date & Time - 05/01/2024 07:30 AM) ?LAB: Comprehensive [place]. Panel Fast (Collection Date & Time - 05/01/2024 07:30 AM) ?LAB: Lipid Panel (Collection Date & Time - 05/01/2024 07:30 AM) ?LAB: Vitamin D 25-OH Total (Collection Date & Time - 05/01/2024 07:30 AM)* Murphy Villagomez 05/01/2024 12:25:01 PM EDT > must see vit Michaelle Chirinos 05/10/2024 08:23:35 AM EST > PATIENT KEPT APPT WITH DR ?LAB: Microalbumin, Random (Collection Date & Time - 05/01/2024 07:30 AM) ?LAB: Hemoglobin A1c (Collection Date & Time - 05/01/2024 07:30 AM) ?LAB: UA ClnCatch+Micro w/rflx Cult (Collection Date & Time - 05/01/2024 07:30 AM)4.?Prediabetes?LAB: Complete Blood Count Auto Diff (Collection Date & Time - 05/01/2024 07:30 AM) ?LAB: Comprehensive [place]. Panel Fast (Collection Date & Time - 05/01/2024 07:30 AM) ?LAB: Lipid Panel (Collection Date & Time - 05/01/2024 07:30 AM) ?LAB: Vitamin D 25-OH Total (Collection Date & Time - 05/01/2024 07:30 AM)* Murphy Villagomez 05/01/2024 12:25:01 PM EDT > must see vit Michaelle Chirinos 05/10/2024 08:23:35 AM EST > PATIENT KEPT APPT WITH DR ?LAB: Microalbumin, Random (Collection Date & Time - 05/01/2024 07:30 AM) ?LAB: Hemoglobin A1c (Collection Date & Time - 05/01/2024 07:30 AM) ?LAB: UA ClnCatch+Micro w/rflx Cult (Collection Date & Time - 05/01/2024 07:30 AM)5.?Essential hypertension?LAB: Complete Blood Count Auto Diff (Collection Date & Time - 05/01/2024 07:30 AM) ?LAB: Comprehensive [place]. Panel Fast (Collection Date & Time - 05/01/2024 07:30 AM) ?LAB: Lipid Panel (Collection Date & Time - 05/01/2024 07:30 AM) ?LAB: Vitamin D 25-OH Total (Collection Date & Time - 05/01/2024 07:30 AM)* Murphy Villagomez 05/01/2024 12:25:01 PM EDT > must see vit Michaelle Chirinos 05/10/2024 08:23:35 AM EST > PATIENT KEPT APPT WITH ?LAB: Microalbumin, Random (Collection Date & Time - 05/01/2024 07:30 AM) ?LAB: Hemoglobin A1c (Collection Date & Time - 05/01/2024 07:30 AM) ?LAB: UA ClnCatch+Micro w/rflx Cult (Collection Date & Time - 05/01/2024 07:30 AM) * Procedure Codes: 3 [id number] VENIPUNCT, ROUTINE* * * The named appointment provid er may or may not be the originator of this progress note, and it is not deemed complete until electronically signed by the appointment provider. Sign off status: Pending * Provider: Tejinder Villagomez MD Date: Generated for Kerry tierney/Zuleika/Blanca on: 07/06/2024 12:35 PM EST
--- OUTSIDE RECORDS SUMMARY | 2024-05-08 08:00 | XMS_ITS ---
Author Organization Murphy Villagomez MD Address [address] [place] [phone] Care Team Providers Care Control And Recovery Special Tactics Name Role Phone Murphy Villagomez Primary Care Provider Allergies Allergen (clinical drug ingredient) Drug/Non Drug Allergy documented on EMR Reaction Allergy Type Onset Date Status Latex latex (uncoded) rash Allergy Acti ve Results Component Value Reference Range Notes TSH reflex Free T4 Reviewed date:05/09/2024 12:22:05 PM Interpretation: Performing Lab:[facility], [address] [place] [phone] Notes/Report: TSH reflex Free T4 0.21 0.32-4.0 uIU/mL REASON FOR VISIT review labs, CBACK VIT D Medications Medication SIG (Take, Route, Frequency, Duration) Notes Start Date End Date Status Magnesium 400 MG as directed Orally Not-Taking Amoxicillin 500 MG 4 capsule Orally one hour before procedure for 10 days 09/26/2020 Active Aspirin 81 MG 1 tablet Orally Once a day Active Celecoxib 200 MG TAKE 1 CAPSULE BY MO UT EVERY DAY WITH FOOD Active Magnesium 400 MG as directed Orally Active Atorvastatin Calcium 80 MG take 1 tablet by mouth once daily Orally Once a day Active Levothyroxine Sodium 88 MCG TAKE 1 TABLET BY MOUTH EVERY MORNING ON AN EMPTY STOMACH Active amLODIPine Besylate 5 MG TAKE 1 TABLET B Y MOUTH EVERY DAY Active Vitamin D 125 MCG (5000 UT) 1 tablet Orally every other day Active Clobetasol Propionate 0.05 % 1 application to affected area Externally Twice a day 12/24/2011 Active Social History Tobacco Use: Social History Observation Description Date Details (start date - stop date) Former Smoker NA - NA Tobacco Use/Smoking Question Answer Notes Patient is a former smoker How long has it been since y ou last smoked? > 10 years Additional Findings: Tobacco Non-User Fo rmer smoker, currently using no form of tobacco Alcohol Screen Question Answer Notes Did you have a drink containing alcohol in the p ast year? No Points 0 Interpretation Negative Problems Problem Type SNOMED Code ICD Code Onset Dates Problem Status W/U Status Risk Notes Problem [id number] MARA (obstructive sleep apnea) (G47.33) Active confirmed Problem 843722265 History of lung cancer (Z85.118) Active confirmed Vital Signs Blood pressure systolic 114 mm Hg 05/08/20 24 Blood pressure diastolic 62 mm Hg 024 Height 60.5 in 05/08/2024 Weight 126 lbs 05/08/2024 BMI 24.20 kg/m2 05/08/2024 Encounters Encounter Location Date Provider Diagnosis Murphy Villagomez MD [address] [place] [address] [place] [phone] 05/08/2024 Murphy Villagomez Acquired hypothyroidism E03.9 ; Prediabetes R73.03 ; Primary osteoarthritis, right hand M19.041 ; Vitamin D deficiency E55.9 ; MARA (obstructive sleep apnea) G47.33 ; CAD in [place] artery I25.10 ; Essential hypertension I10 ; Intrinsic eczema L20.84 and Depression screening Z13.31 Assessments Encounter Date Diagnosis (ICD Code) Assessment Notes Treatment Notes Treatment Clinical Notes Section Notes 05/08/2024 Acquired hypothyroidism (ICD-10 - E03.9) pending lab 05/08/2024 Prediabetes (ICD-10 - R73.03) better a1c, will continue to monitor, no need for medication at this time 05/08/2024 Primary osteoarthritis, right hand (ICD-10 - M19.041) stable, will continue current regiment 05/08/2024 Vitamin D deficiency (ICD-10 - E55.9) stable, will continue current regiment 05/08/2024 MARA (obstructive sleep apnea) (ICD-10 - G47.33) says that she is getting more episodes of apnea and longer. needs sleep study/ patient is refusing to have this done 05/08/2024 CAD in [place] artery (ICD-10 - I25.10) stable, will continue current regiment 05/08/2024 Essential hypertension (ICD-10 - I10) doing well, will continue current regiment 05/08/2024 Intrinsic eczema (ICD-10 - L20.84) stable, will continue current regiment 05/08/2024 Depression screening (ICD-10 - Z13.31) negative screen 05/08/2024 Other did have surgery and is doing well/ NEED D/C SUMMARY [facility] and dr muller note/ request will be sent Plan Of Treatment Medication Medication Name Sig Start Date Stop Date Notes Celecoxib 200 MG TAKE 1 CAPSULE BY MO UTH EVERY DAY WITH FOOD Atorvastatin Calcium 80 MG take 1 tablet by mouth once daily Orally Once a day Levothyroxine Sodium 88 MCG TAKE 1 TABLE T BY MOUTH EVERY MORNING ON AN EMPTY STOMACH Vitamin D 125 MCG (5000 UT) 1 tablet Ora lly every other day Clobetasol Propionate 0.05 % 1 applicati on to affected area Externally Twice a day 12/24/2011 Treatment Notes Assessment Notes Acquired hypothyroidism pending lab Prediabetes better a1c, will con tinue to monitor, no need for medication at this time Primary osteoarthritis, right hand stabl e, will continue current regiment Vitamin D deficiency stable, will contin ue current regiment MARA (obstructive sleep apnea) sa ys that she is getting more episodes of apnea and longer. needs sleep study/ patient is refusing to have this done CAD in cata[place] artery stable, will contin ue current regiment Essential hypertension doing well, will continue current regiment Intrinsic eczema stable, will continu e current regiment Depression screening negative screen Other did have surgery and is doing well/ NEED D/C SUMMARY [facility] and dr muller note/ request will be sent Next Appt Details Follow Up: 6 Months, Reason: Provider Name:Murphy Melgoza ier, 05/13/2025 01:00:00 PM, [address] [place] [address], [address], [place], [place], [phone], Progress Notes * Margaret PACHECO KDOB:[birth year] (73 yo F)Acc No.[id number]:05/08/2024 Patient: Margaret Beltran Provider: Tejinder Villagomez MD :1950 A ge:73 Y S ex:Female Date:05/08/2024 Address: [address] [id number] Subjective: * Chief Complaints: * R eview labsCBACK VIT D * HPI: D epression Screening: PHQ-9 L ittle interest or pleasure in doing things N ot at all, F eeling down, depressed, or hopeless N ot at all, T rouble falling or staying asleep, or sleeping too much N ot at all, F eeling tired or having little energy N ot at all, P oor appetite or overeating N ot at all, F eeling bad about yourself or that you are a failure, or have let yourself or your family down N ot at all, T rouble concentrating on things, such as reading the newspaper or watching television N ot at all, M oving or speaking so slowly that other people could have noticed; or the opposite, being so fidgety or restless that you have been moving around a lot more than usual N ot at all, T houghts that you would be better off or of hurting yourself in some way N ot at all, T otal Score 0 . I nterpretation and Intervention D epression Screening Findings N egative, F ollow-Up for Depression : review of PHQ-9 found negative result, no follow-up needed. C ommunication Needs: Communication Needs D oes the patient have a hearing impairment N o, D oes the patient have a vision impairment? Y es, I f yes, what is the vision impairment? G lasses, D oes the patient have a cognition impairment? N o. F all Risk: History H ave you had any falls with injury in the past year? N o, H ave you had two or more falls in the past year? Y es. S RAFAEL Questions: SDOH Questions I n the past year have you been worried about losing housing? N o, I n the past year have you or any family members you live with been unable to get any of the following when it was really needed? Check all that apply: N one. S ymptom(s): patient is a 73 yo female here for review of recent labs and follow up of chronic issues,. * ROS: G eneral/Constitutional: Patient denies f atigue , headache. C hange in appetite?denies. C hills d enies. F ever d enies. O phthalmologic: Blurred vision d enies. D ischarge d enies. P ain d enies. E NT: Patient denies d ecreased sense of smell , any loss of taste , sore throat. D ecreased hearing d enies. S ore throat d enies. S wollen glands d enies. E ndocrine: Cold intolerance d enies. E xcessive thirst d enies. H eat intolerance d enies. W eight loss d enies. R espiratory: Cough d enies. S hortness of breath at rest d enies. S hortness of breath with exertion d enies. W heezing d enies. C ardiovascular: Chest pain at rest d enies. C hest pain with exertion?denies. I rregular heartbeat d enies. S hortness of breath d enies. ? G astrointestinal: Abdominal pain d enies. C hange in bowel habits d enies. D iarrhea d enies. N ausea d enies. R ectal bleeding d enies. V omiting d enies . G enitourinary: Blood in urine d enies. D ifficulty urinating d enies. F requent urination d enies. U rinary incontinence D enies. M usculoskeletal: Patient denies m uscle aches. P ainful joints d enies. W eakness d enies. S kin: Dry skin d enies. I tching d enies. D enies?Mole(s), changes in moles, new moles or any lesions of concern. D enies P hotosensitivity. R kalie d enies. N eurologic: Dizziness d enies. F ainting d enies. H eadache?denies. * Medical History: * Surgical History: * Hospitalization/Major Diagno stic Procedure: * Family History: F ather: 81 yrs. M other: 49 yrs, diagnosed with Cancer. 2 brother(s) , 2 sister(s) . 2 daughter(s) . . Denies mental health/substance abuse family history, Denies mental health/substance abuse family history, Denies mental health/substance abuse family history. * Social History: T obacco Use: T obacco Use/Smoking P atient is a f ormer smoker, H ow long has it been since you last smoked? > 10 years, A dditional Findings: Tobacco Non-User F ormer smoker, currently using no form of tobacco. D rugs/Alcohol: A lcohol Screen D id you have a drink containing alcohol in the past year? N o, P oints 0 , I nterpretation N egative. M iscellaneous: C affeine: yes, frequency:, 1-2 cups per day. Children: yes. Community involvements: yes. Exercise: yes, gardening. Housing: renting. Living with: spouse. Marital status: . Occupation: weeks/months/years, Retired. Pets: none, 2 dogs. no Travel outside of the [place]. * Medications: T akingMagnesium 400 MG Capsule as directed Orally Aspirin 81 MG Tablet 1 tablet Orally Once a dayClobetasol Propionate 0.05 % Cream 1 application to affected area Externally Twice a dayAmoxicillin 500 MG Capsule 4 capsule Orally one hour before procedureVitamin D 125 MCG (5000 UT) Capsule 1 tablet Orally Once a dayAtorvastatin Calcium 80 MG Tablet take 1 tablet by mouth once daily Orally Once a dayamLODIPine Besylate 5 MG Tablet TAKE 1 TABLET BY MOUTH EVERY DAY Levothyroxine Sodium 88 MCG Tablet TAKE 1 TABLET BY MOUTH EVERY MORNING ON AN EMPTY STOMACH Celecoxib 200 MG Capsule TAKE 1 CAPSULE BY MOUTH EVERY DAY WITH FOOD Taking Magnesium 400 MG Capsule as directed Orally Taking Aspirin 81 MG Tablet 1 tablet Orally Once a dayTaking Clobetasol Propionate 0.05 % Cream 1 application to affected area Externally Twice a dayTaking Amoxicillin 500 MG Capsule 4 capsule Orally one hour before procedureTaking Vitamin D 125 MCG (5000 UT) Capsule 1 tablet Orally Once a dayTaking Atorvastatin Calcium 80 MG Tablet take 1 tablet by mouth once daily Orally Once a dayTaking amLODIPine Besylate 5 MG Tablet TAKE 1 TABLET BY MOUTH EVERY DAY Taking Levothyroxine Sodium 88 MCG Tablet TAKE 1 TABLET BY MOUTH EVERY MORNING ON AN EMPTY STOMACH Taking Celecoxib 200 MG Capsule TAKE 1 CAPSULE BY MOUTH EVERY DAY WITH FOOD Not-Taking/PRNMagnesium 400 MG Capsule as directed Orally Not-Taking/PRN Magnesium 400 MG Capsule as directed Orally * Allergies: l atex: mark[Allergies Verified] Objective: * Vitals: H t: 60.5, Wt:126, BMI:24.20, BP:114/62. * P ast Orders: L ab:Complete Blood Count Auto Diff (Order Date - 05/01/2024) (Collection Date - 05/01/2024) Value Reference Range White Blood Count 4.6 L 4.8-10.8 - X10*3/uL Red Blood Count 4.76 4.20-5.50 - X10*6/uL Hemoglobin 14.4 12.0-16.0 - g/dl Hematocrit 44.2 37.0-47.0 - % Mean Corpuscular Volume 92.9 80.0-98.0 - fL Mean Corpuscular Hemoglobin 30.3 27.0-33.0 - pg Mean Corpuscular HGB Conc 32.6 31.0-35.0 - g/ dl Red Cell Distribution Width 13.3 11.0-16.0 - % Platelet Count 259 160-400 - X10*3/uL Mean Platelet Volume 9.7 9.4-12.3 - fL Neutrophils Percent Auto 48.1 45-73 - % Imm Gran Pct Auto 0.2 0.0-0.4 - % Lymphocytes Percent Auto 35.3 20-40 - % Monocytes Percent Auto 11.2 H 2-11 - % Eosinophils Percent Auto 4.3 H 0-4 - % Basophils Percent Auto 0.9 0-2 - % NRBC Pct Auto 0.0 0.0-0.2 - /100WBC Neutrophils Absolute Auto 2.2 2.0-8.3 - x10* 3/uL Imm Gran Abs Auto 0.01 0.00-0.03 - X10*3/uL Lymphocytes Absolute Auto 1.6 1.2-4.9 - X10* 3/uL Monocytes Absolute Auto 0.5 0.1-1.2 - X10*3/ uL Eosinophils Absolute Auto 0.2 0.0-0.4 - X10* 3/uL Basophils Absolute Auto 0.0 0.0-0.2 - X10*3/ uL NRBC Abs Auto 0.000 0.0-0.012 - X10*3/uL L ab:Comprehensive Chicken. Panel Fast (Order Date - 05/01/2024) (Collection Date - 05/01/2024) Value Reference Range Sodium 143 135-145 - mmol/L Bilirubin Total 0.5 0.0-1.0 - mg/dL Aspartate Amino Transferase 27 5-31 - U/L Alanine Aminotransferase 19 0-31 - U/L Total Protein 7.4 6.5-8.0 - g/dL Albumin Level 4.0 3.5-5.0 - g/dL Alkaline Phosphatase 67 39-117 - U/L Potassium 4.5 3.3-5.1 - mmol/L Chloride 108 96-108 - mmol/L Carbon Dioxide 28 22-29 - mmol/L Anion Gap 12 12-20 - Blood Urea Nitrogen 22 H 9-16 - mg/dL Creatinine 0.81 0.5-1.4 - mg/dL Estimated Glomerular Filt Rate > 60 - Glucose Fasting 100 H 60-99 - mg/dL Calcium 9.3 8.4-10.2 - mg/dL L ab:Lipid Panel (Order Date - 05/01/2024) (Collection Date - 05/01/2024) Value Reference Range Triglycerides 87 <150 - mg/dL Cholesterol 146 <200 - mg/dL LDL Cholesterol Calculated 77 <100 - mg/dL HDL Cholesterol 52 >40 - mg/dL L ab:Microalbumin, Random (Order Date - 05/01/2024) (Collection Date - 05/01/2024) Value Reference Range Creatinine Urine 170.97 - mg/dL Microalbumin Urine 9.0 - mg/L Microalbum Creatinine Ratio Ur 5.2 <30 - ug/ mg cr L ab:Hemoglobin A1c (Order Date - 05/01/2024) (Collection Date - 05/01/2024) Value Reference Range Hemoglobin A1c % 6.0 <6.0 - % Estimated Average Glucose 126 - mg/dL L ab:UA ClnCatch+Micro w/rflx Cult (Order Date - 05/01/2024) (Collection Date - 05/01/2024) Value Reference Range Color Urine Yellow - Appearance Urine Clear - PH 5.5 5.0-9.0 - Glucose Urine UA Negative Negative - mg/dL Urine Blood Negative Negative - Specific [place] - Urine 1.025 1.005-1.025 - Urine Protein Negative Neg-Trace - mg/dL Urine Ketones Negative Negative - mg/dL Nitrite Urine Negative Negative - Leukocyte Esterase Urine Trace A Negative - RBC Urine 0-2 0-2 - /HPF WBC Urine 0-5 0-5 - /HPF Squamous Epithelial Cell Urine 0-2 0-2 - /HP F Bacteria Urine None Seen None Seen - Hyaline Casts Urine 0-2 0-2 - /LPF * Examination: G eneral Examination: GENERAL APPEARANCE: w ell developed, well nourished, in no acute distress. HEAD: n ormocephalic, atraumatic. EYES: p upils equal, round, reactive to light and accommodation, sclera non-icteric. EARS: n ormal. ORAL CAVITY: m ucosa moist. THROAT: c lear. NECK/THYROID: n leti supple, full range of motion, no cervical lymphadenopathy, no bruits. SKIN: w arm and dry, no suspicious lesions. HEART: r egular rate and rhythm, S1, S2 normal, no murmurs.? LUNGS: c lear to auscultation bilaterally. BREASTS: N o mass, no lump. ABDOMEN: s oft, nontender, nondistended, bowel sounds present, normal, no organomegaly , no masses palpable. RECTAL EXAM: d one by microbiological lab technician. FEMALE GENITOURINARY: d one by microbiological lab technician. EXTREMITIES: n o clubbing, cyanosis, or edema. NEUROLOGIC: n onfocal, motor strength normal upper and lower extremities, sensory exam intact. Assessment: * Assessment: 1. A cquired hypothyroidism - E03.9 (Primary) 2 . P rediabetes - R73.03 3 . P rimary osteoarthritis, right hand - M19.041 4 . V itamin D deficiency - E55.9 5 . O SA (obstructive sleep apnea) - G47.33 6 . C AD in cata[place]ba artery - I25.10 7 . E ssential hypertension - I10 8 . I ntrinsic eczema - L20.84 9 . D epression screening - Z13.31 Plan: * Treatment: 2. P rediabetes Notes: better a1c, will continue to monitor, no need for medication at this time 3. P rimary osteoarthritis, right hand Continue Celecoxib Capsule, 200 MG, TAKE 1 CAPSULE BY MOUTH EVERY DAY WITH FOOD. Notes: stable, will continue current regiment 4. V itamin D deficiency Notes: stable, will continue current regiment 5. O SA (obstructive sleep apnea) Notes: says that she is getting more episodes of apnea and longer. needs sleep study/ patient is refusing to have this done 6. C AD in cata[place]ba artery Continue Atorvastatin Calcium Tablet, 80 MG, take 1 tablet by mouth once daily, Orally, Once a day.? Notes: stable, will continue current regiment 7. E ssential hypertension Notes: doing well, will continue current regiment 8. I ntrinsic eczema Notes: stable, will continue current regiment 9. D epression screening Notes: negative screen 10. O thers Notes: did have surgery and is doing well/ NEED D/C SUMMARY [facility] and dr muller note/ request will be sent * Procedure Codes: 3 6415 VENIPUNCT, ROUTINE* * Follow Up: 6 Months * * Sign off status: Completed true * Provider: Tejinder Villagomez MD Date: 07/08/2023 Generated for Kerry tierney/Zuleika/eTrevasmitting on: 07/06/2024 12:34 PM EST History and Physical Notes * HPI (History of Present Illness) Category Sub-Category Detail Notes Category Not es Symptom(s) patient is a 73 yo female here for review of recent labs and follow up of chronic issues, Depression Screening PHQ-9 Little inte rest or pleasure in doing things: Not at all Feeling down, depressed, or hopeless: No t at all Trouble falling or staying asleep, or sl eeping too much: Not at all Feeling tired or having little energy: N ot at all Poor appetite or overeating: Not at all Feeling bad about yourself o r that you are a failure, or have let yourself or your family down: Not at all Trouble concentrating on thi ngs, such as reading the newspaper or watching television: Not at all Moving or speaking so slowly that other people could have noticed; or the opposite, being so fidgety or restless that you have been moving around a lot more than usual: Not at all Thoughts that you would be b dontae off or of hurting yourself in some way: Not at all Total Score: 0 Interpretation and Intervention Depression Mer sumner Findings: Negative Follow-Up for Depression: : review of PH Q-9 found negative result, no follow-up needed SDOH Questions SDOH Questions In the past year have you been worried about losing housing?: No In the past year have you or any family members you live with been unable to get any of the following when it was really needed? Check all that apply:: None Fall Risk History Have you had any falls with injury i n the past year?: No Have you had two or more falls in the st year?: Yes Communication Needs Communication Needs Does the patient have a hearing impairment: No Does the patient have a vision impairmen t?: Yes If yes, what is the vision impairment?: Glasses Does the patient have a cognition impair ment?: No Examination Category Sub-Category Detail Notes Category Not es General Examination GENERAL APPEARANCE: well dev eloped, well nourished, in no acute distress HEAD: normocephalic, atrau matic EYES: pupils equal, round, reactive to light and accommodation, sclera non-icteric EARS: normal THROAT: clear NECK/THYROID: neck supple, full ra nge of motion, no cervical lymphadenopathy, no bruits HEART: regular rate and rhy thm, S1, S2 normal, no murmurs LUNGS: clear to auscultatio n bilaterally ABDOMEN: soft, nontender, non distended, bowel sounds present, normal, no organomegaly , no masses palpable NEUROLOGIC: nonfocal, motor stre ngth normal upper and lower extremities, sensory exam intact SKIN: warm and dry, no carlos picious lesions EXTREMITIES: no clubbing, cyanosi s, or edema BREASTS: No mass, no lump RECTAL EXAM: done by microbiological lab technician FEMALE GENITOURINARY: done by microbiological lab technician ORAL CAVITY: mucosa moist
--- OUTSIDE RECORDS SUMMARY | 2024-05-18 07:55 | XMS_ITS ---
Author Organization Murphy Villagomez MD Address [address] [place] [phone] Care Team Providers Care Chip Crusher Operator Name Role Phone Murphy Villagomez Primary Care Provider REASON FOR VISIT FYI record request Encounters Encounter Location Date Provider Diagnosis Murphy Villagomez MD [facility] [address] [place] [phone] 05/18/2024 Murphy Villagomez Plan Of Treatment Next Appt Details Provider Name:Murphy duarte, 05/13/2025 01:00:00 PM, [facility], [address] [place] [address], [phone], Progress Notes * Margaret PACHECO KDOB:[birth year] (73 yo F)Acc No.[id number]:05/18/2024 Patient: Margaret Beltran :1950 A ge:73 Y S ex:Female Address: [address] , [place], [address] * true * Date: Generated for Kerry tierney/Zuleika/Lakishaitting on: 07/06/2024 12:34 PM EST
--- OUTSIDE RECORDS SUMMARY | 2024-11-22 03:30 | XMS_ITS ---
Author Organization Murphy Villagomez MD Address [address] [place], [place] [id number] Care Team Providers Care Waterfront Director Name Role Phone Murphy Villagomez Primary Care Provider Results Component Value Reference Range Notes Liver Panel Reviewed date:11/22/2024 01:36:43 PM Interpretation: Performing Lab:[facility], [address] [place] [phone] Notes/Report: Bilirubin Total 0.8 0.0-1.0 mg/dL Bilirubin Direct 0.3 0.0-0.5 mg/dL Aspartate Amino Transferase 31 5-31 U/L Alanine Aminotransferase 27 0-31 U/L Total Protein 7.4 6.5-8.0 g/dL Albumin Level 4.3 3.5-5.0 g/dL Alkaline Phosphatase 61 39-117 U/L Glucose Fasting Reviewed date:11/22/2024 01:36:52 PM Interpretation: Performing Lab:[facility], [address] [place] [phone] Notes/Report: Glucose Fasting 103 60-99 mg/dL A fasting glucose from 100-125 mg/dl is considered impaired (pre-diabetes). Lipid Panel with Reflex Reviewed date:11/22/2024 01:36:16 PM Interpretation: Performing Lab:[facility], [address] [place] [phone] Notes/Report: Triglycerides 75 <150 mg/dL Desirable Triglyceride: less than 150 mg/dL Borderline High Triglyceride 150-199 mg/dL High Triglyceride: 200-499 mg/dL Very High Triglyceride: greater than or equal to 5OO mg/dL Cholesterol 142 <200 mg/dL Desirable Cholesterol: less than 200 mg/dL Borderline High Cholesterol: 200-239 mg/dL High Cholesterol: greater than 239 mg/dL LDL Cholesterol Calculated 80 <100 mg/dL Desirable LDL: less than 100 mg/dL Near Optimal/Above Optimal LDL: 110-129 mg/dL Borderline High LDL: 130-159 mg/dL High LDL: 160-189 mg/dL Very High LDL: greater than or equal to 190 mg/dL HDL Cholesterol 47 >40 mg/dL Desirable HDL: greater than 40 mg/dL Note: This HDL assay may give artificially low results in patients with liver disease. Hemoglobin A1c Reviewed date:11/22/2024 01:26:06 PM Interpretation: Performing Lab:[address] [phone] Notes/Report: Hemoglobin A1c % 6.0 <6.0 % [...] average glucose, using the formula of the M2T-Yaglkmv Average Glucose study (ADAG), Diabetes Care, Vol.31,#8, Feb. 2007 REASON FOR VISIT fasting lipids Encounters Encounter Location Date Provider Diagnosis Murphy Villagomez MD [address] [place] [address] [place] [phone] 11/22/2024 Murphy Keenanvirgentrudy Pure hypercholestero lemia E78.00 and Prediabetes R73.03 Assessments Encounter Date Diagnosis (ICD Code) Assessment Notes Treatment Notes Treatment Clinical Notes Section Notes 11/22/2024 Pure hypercholesterolemia (ICD-10 - E78.00) 11/22/2024 Prediabetes (ICD-10 - R73.03) Plan Of Treatment Next Appt Details Provider Name:Murphy Melgoza ier, 05/13/2025 01:00:00 PM, [address], [address], [place], [place], [phone], Progress Notes * Margaret PACHECO KDOB:[birth year] (74 yo F)Acc No.[id number]:11/22/2024 Progress Note Patient: Margaret NIELSEN Provider: Tejinder Villagomez MD :1950 A ge:74 Y S ex:Female Date:11/22/2024 Address: [address] [id number] Subjective: * Chief Complaints: * 1 . Fasting lipids. * Medical History: Objective: * Vitals: Assessment: * Assessment: 1. P ure hypercholesterolemia - E78.00 (Primary) 2 . P rediabetes - R73.03? Plan: * Treatment: 2. P rediabetes L AB: Liver Panel (Collection Date & Time - 11/22/2024 08:30 AM) L AB: Glucose Fasting (Collection Date & Time - 11/22/2024 08:30 AM) L AB: Lipid Panel with Reflex (Collection Date & Time - 11/22/2024 08:30 AM) L AB: Hemoglobin A1c (Collection Date & Time - 11/22/2024 08:30 AM) * Procedure Codes: 3 6415 VENIPUNCT, ROUTINE* * * The named appointment provid er may or may not be the originator of this progress note, and it is not deemed complete until electronically signed by the appointment provider. Sign off status: Pending * Provider: Tejinder Villagomez MD Date: 0 11/22/2024 Generated for Kerry tierney/Zuleika/eTransmitting on: 1 07/06/2024 12:35 PM EST
--- OUTSIDE RECORDS SUMMARY | 2024-11-29 05:45 | XMS_ITS ---
Author Organization Murphy Villagomez MD Address [address] [place] [phone] Care Team Providers Care Recycling Center Operator Name Role Phone Murphy Villagomez Primary Care Provider [phone] Allergies Allergen (clinical drug ingredient) Drug/Non Drug Allergy documented on EMR Reaction Allergy Type Onset Date Status Latex latex (uncoded) rash Allergy Acti ve REASON FOR VISIT 6 month Medications Medication SIG (Take, Route, Frequency, Duration) Notes Start Date End Date Status Clobetasol Propionate 0.05 % 1 application to affected area Externally Twice a day 12/24/2011 Active amLODIPine Besylate 5 MG TAKE 1 TABLET B Y MOUTH EVERY DAY for 90 Active Celecoxib 200 MG TAKE 1 CAPSULE BY MO UTH EVERY DAY WITH FOOD for 90 Active Atorvastatin Calcium 80 MG take 1 tablet by mouth once daily Orally Once a day Active Vitamin D 125 MCG (5000 UT) 1 tablet Orally every other day Active Aspirin 81 MG 1 tablet Orally Once a day Active Magnesium 400 MG as directed Orally Not-Taking Levothyroxine Sodium 88 MCG TAKE 1 TABLET BY MOUTH EVERY MORNING ON AN EMPTY STOMACH for 90 Active Magnesium 400 MG as directed Orally Active Amoxicillin 500 MG 4 capsule Orally one hour before procedure for 10 days 09/26/2020 Active Vital Signs Blood pressure systolic 142 mm Hg 11/30/19 25 Blood pressure diastolic 70 mm Hg 025 Height 60.5 in 11/29/2024 Weight 127 lbs 11/29/2024 BMI 24.39 kg/m2 11/29/2024 Encounters Encounter Location Date Provider Diagnosis Murphy Villagomez MD [address] [place], [place] [phone] 11/29/2024 Murphy Villagomez Prediabetes R73.03 ; Pure hypercholesterolemia E78.00 and H/O TIA (transient ischemic attack) and stroke Z86.73 Assessments Encounter Date Diagnosis (ICD Code) Assessment Notes Treatment Notes Treatment Clinical Notes Section Notes 11/29/2024 Prediabetes (ICD-10 - R73.03) doing well with good a1c, no need for medication at this time 11/29/2024 Pure hypercholesterolemia (ICD-10 - E78.00) stable, will cntnue current regiment 11/29/2024 H/O TIA (transient ischemic attack) and stroke (ICD-10 - Z86.73) not having any problems, will continue to monitor Plan Of Treatment Medication Medication Name Sig Start Date Stop Date Notes Amoxicillin 500 MG 4 capsule Orally one hour before procedure for 10 days 09/26/2020 Treatment Notes Assessment Notes Prediabetes doing well with good a1c, no need for medication at this time Pure hypercholesterolemia stable, will c ntnue current regiment H/O TIA (transient ischemic attack) and stroke not having any problems, will continue to monitor Next Appt Details Provider Name:Murphy Melgoza ier, 05/13/2025 01:00:00 PM, [address], [address], [place], [place], [phone], Progress Notes * Margaret PACHECO KDOB:[birth year] (74 yo F)Acc No.[id number]:11/29/2024 Progress Notes Patient: Margaret NIELSEN Provider: Tejinder Villagomez MD :1950 A ge:74 Y S ex:Female Date:11/29/2024 Address: [address] [facility] Subjective: * Chief Complaints: * 6 month * HPI: S ymptom(s): patient is a 74 yo female here for 6 month follow up visit. * ROS: G eneral/Constitutional: Denies C hills. D enies F atigue. D enies F ever. D enies H eadache. E NT: Denies S ore throat. R espiratory: Denies C ough. D enies S hortness of breath at rest. D enies S hortness of breath with exertion. G astrointestinal: Denies D iarrhea. D enies N ausea. * Medical History: * Surgical History: * Hospitalization/Major Diagno stic Procedure: * Medications: T akingMagnesium 400 MG Capsule as directed Orally Aspirin 81 MG Tablet 1 tablet Orally Once a day Amoxicillin 500 MG Capsule 4 capsule Orally one hour before procedure Vitamin D 125 MCG (5000 UT) Capsule 1 tablet Orally every other day Atorvastatin Calcium 80 MG Tablet take 1 tablet by mouth once daily Orally Once a day Clobetasol Propionate 0.05 % Cream 1 application to affected area Externally Twice a day Celecoxib 200 MG Capsule TAKE 1 CAPSULE BY MOUTH EVERY DAY WITH FOOD amLODIPine Besylate 5 MG Tablet TAKE 1 TABLET BY MOUTH EVERY DAY Levothyroxine Sodium 88 MCG Tablet TAKE 1 TABLET BY MOUTH EVERY MORNING ON AN EMPTY STOMACH Taking Magnesium 400 MG Capsule as directed Orally Taking Aspirin 81 MG Tablet 1 tablet Orally Once a day Taking Amoxicillin 500 MG Capsule 4 capsule Orally one hour before procedure Taking Vitamin D 125 MCG (5000 UT) Capsule 1 tablet Orally every other day Taking Atorvastatin Calcium 80 MG Tablet take 1 tablet by mouth once daily Orally Once a day Taking Clobetasol Propionate 0.05 % Cream 1 application to affected area Externally Twice a day Taking Celecoxib 200 MG Capsule TAKE 1 CAPSULE BY MOUTH EVERY DAY WITH FOOD Taking amLODIPine Besylate 5 MG Tablet TAKE 1 TABLET BY MOUTH EVERY DAY Taking Levothyroxine Sodium 88 MCG Tablet TAKE 1 TABLET BY MOUTH EVERY MORNING ON AN EMPTY STOMACH Not-Taking/PRNMagnesium 400 MG Capsule as directed Orally Medication List reviewed and reconciled with the patientNot-Taking/PRN Magnesium 400 MG Capsule as directed Orally Medication List reviewed and reconciled with the patient * Allergies: l atex: rashyes[Allergies Verified] Objective: * Vitals: H t: 60.5, Wt: 127, BMI:24.39, BP:142/70, Wt-k.61. * P ast Orders: L ab:Hemoglobin A1c (Order Date - 11/22/2024) (Collection Date & Time - 11/22/2024 08:30 AM) Value Reference Range Hemoglobin A1c % 6.0 <6.0 - % Estimated Average Glucose 126 - mg/dL L ab:Liver Panel (Order Date - 11/22/2024) (Collection Date & Time - 11/22/2024 08:30 AM) Value Reference Range Bilirubin Total 0.8 0.0-1.0 - mg/dL Bilirubin Direct 0.3 0.0-0.5 - mg/dL Aspartate Amino Transferase 31 5-31 - U/L Alanine Aminotransferase 27 0-31 - U/L Total Protein 7.4 6.5-8.0 - g/dL Albumin Level 4.3 3.5-5.0 - g/dL Alkaline Phosphatase 61 39-117 - U/L L ab:Glucose Fasting (Order Date - 11/22/2024) (Collection Date & Time - 11/22/2024 08:30 AM) Value Reference Range Glucose Fasting 103 H 60-99 - mg/dL L ab:Lipid Panel with Reflex (Order Date - 11/22/2024) (Collection Date & Time - 11/22/2024 08:30 AM) Value Reference Range Triglycerides 75 <150 - mg/dL Cholesterol 142 <200 - mg/dL LDL Cholesterol Calculated 80 <100 - mg/dL HDL Cholesterol 47 >40 - mg/dL * Examination: G eneral Examination: GENERAL APPEARANCE: a lert, well hydrated, in no distress.? HEAD: n ormocephalic. SKIN: g ood turgor. HEART: r egular rate and rhythm, no murmurs, rubs, gallops.? LUNGS: n o wheezes, rales, rhonchi, good air movement, clear to auscultation bilaterally. Assessment: * Assessment: 1. P rediabetes - R73.03 (Primary) 2 . P ure hypercholesterolemia - E78.00? 3. H /O TIA (transient ischemic attack) and stroke - Z86.73 Plan: * Treatment: 2. P ure hypercholesterolemia Notes: stable, will cntnue current regiment 3. H /O TIA (transient ischemic attack) and stroke Notes: not having any problems, will continue to monitor 4. O thers Refill Amoxicillin Capsule, 500 MG, 4 capsule, Orally, one hour before procedure, 10 days, 40, Refills 6. * Procedure Codes: * * Sign off status: Completed true * Provider: Tejinder Villagomez MD Date: 0 11/29/2024 Generated for Kerry tierney/Zuleika/Lakishaitting on: 1 07/06/2024 12:36 PM EST History and Physical Notes * HPI (History of Present Illness) Category Sub-Category Detail Notes Category Not es Symptom(s) patient is a 74 yo female here for 6 month follow up visit Examination Category Sub-Category Detail Notes Category Not es General Examination GENERAL APPEARANCE: alert, w ell hydrated, in no distress HEAD: normocephalic HEART: regular rate and rhy thm, no murmurs, rubs, gallops LUNGS: no wheezes, rales, r honchi, good air movement, clear to auscultation bilaterally SKIN: good turgor
--- OUTSIDE RECORDS SUMMARY | 2024-12-18 07:53 | XMS_ITS ---
Author Organization Murphy Villagomez MD Address [address] [place] [phone] Care Team Providers Care Phys Assistant Name Role Phone Murphy Villagomez Primary Care Provider REASON FOR VISIT med for her dentist visit Medications Medication SIG (Take, Route, Fr equency, Duration) Notes Start Date End Date Status Amoxicillin 500 MG 4 capsule Orally one hour before procedure for 1 days 09/26/2020 Active Encounters Encounter Location Date Provider Diagnosis Murphy Villagomez MD [address] [facility] [place] [phone] 12/18/2024 Murphy Villagomez Plan Of Treatment Medication Medication Name Sig Start Date Stop Date Notes Amoxicillin 500 MG 4 capsule Orally one hour before procedure for 1 days 09/26/2020 Next Appt Details Provider Name:Murphy duarte, 05/13/2025 01:00:00 PM, [address] [facility], [address], [place], [place], [phone], Progress Notes * Lurdes PACHECOfinnbrice KDOB:[birth year] (74 yo F)Acc No.[id number]:12/18/2024 Patient: Margaret NIELSEN :1950 A ge:74 Y S ex:Female Address: [address] , [place], [address] * Refills Refill Amoxicillin Capsule, 500 MG, Orally, 12, 4 capsule, one hour before procedure, 1 days, Refills=6 * true * Date: Generated for Kerry tierney/Zuleika/Lakishaitting on: 07/06/2024 12:35 PM EST
--- OUTSIDE RECORDS SUMMARY | 2025-05-06 02:45 | XMS_ITS ---
Author Organization Murphy Villagomez MD Address [address] [place], [place] [phone] Care Team Providers Care Structural Design Engineer Name Role Phone Murphy Villagomez Primary Care Provider Results Component Value Reference Range Notes Complete Blood Count Auto Di ff Reviewed date:05/06/2025 12:19:56 PM Interpretation: Performing Lab:[facility], [address] [place] [phone] Notes/Report: White Blood Count 6.6 4.8-10.8 X10*3/uL Red Blood Count 4.93 4.20-5.50 X10*6/uL Hemoglobin 15.1 12.0-16.0 g/dl Hematocrit 46.0 37.0-47.0 % Mean Corpuscular Volume 93.3 80.0-98.0 fL Mean Corpuscular Hemoglobin 30.6 27.0-33.0 pg Mean Corpuscular HGB Conc 32.8 31.0-35.0 g/dl Red Cell Distribution Width 13.4 11.0-16.0 % Platelet Count 283 160-400 X10*3/uL Mean Platelet Volume 10.3 9.4-12.3 fL Neutrophils Percent Auto 56.9 45-73 % Imm Gran Pct Auto 0.3 0.0-0.4 % Lymphocytes Percent Auto 30.5 20-40 % Monocytes Percent Auto 9.0 2-11 % Eosinophils Percent Auto 2.4 0-4 % Basophils Percent Auto 0.9 0-2 % NRBC Pct Auto 0.0 0.0-0.2 /100WBC Neutrophils Absolute Auto 3.7 2.0-8.3 x10*3/u L Imm Gran Abs Auto 0.02 0.00-0.03 X10*3/uL Lymphocytes Absolute Auto 2.0 1.2-4.9 X10*3/u L Monocytes Absolute Auto 0.6 0.1-1.2 X10*3/uL Eosinophils Absolute Auto 0.2 0.0-0.4 X10*3/u L Basophils Absolute Auto 0.1 0.0-0.2 X10*3/uL NRBC Abs Auto 0.000 0.0-0.012 X10*3/uL Comprehensive [place]. Panel Fa st Reviewed date:05/06/2025 12:20:50 PM Interpretation: Performing Lab:[facility], [address] [place] [phone] Notes/Report: Sodium 140 135-145 mmol/L Potassium 4.3 3.3-5.1 mmol/L Chloride 105 96-108 mmol/L Carbon Dioxide 28 22-29 mmol/L Anion Gap 11 12-20 Blood Urea Nitrogen 19 9-16 mg/dL Creatinine 0.67 0.5-1.4 mg/dL Estimated Glomerular Filt Rate > 60 Chronic Kidney Disease: Estimated GFR < 60 mL/min/1.73m2 Severe Kidney Disease: Estimated GFR < 15 mL/min/1.73m2 Glucose Fasting 119 60-99 mg/dL A fasting glucose from 100-125 mg/dl is considered impaired (pre-diabetes). Calcium 9.3 8.4-10.2 mg/dL Bilirubin Total 0.7 0.0-1.0 mg/dL Aspartate Amino Transferase 29 5-31 U/L Alanine Aminotransferase 27 0-31 U/L Total Protein 8.0 6.5-8.0 g/dL Albumin Level 4.6 3.5-5.0 g/dL Alkaline Phosphatase 72 39-117 U/L Lipid Panel Reviewed date:05/06/2025 12:17:55 PM Interpretation: Performing Lab:[facility], [address] [place] [phone] Notes/Report: Triglycerides 104 <150 mg/dL Desirable Triglyceride: less than 150 mg/dL Borderline High Triglyceride 150-199 mg/dL High Triglyceride: 200-499 mg/dL Very High Triglyceride: greater than or equal to 5OO mg/dL Cholesterol 168 <200 mg/dL Desirable Cholesterol: less than 200 mg/dL Borderline High Cholesterol: 200-239 mg/dL High Cholesterol: greater than 239 mg/dL LDL Cholesterol Calculated 95 <100 mg/dL Desirable LDL: less than 100 mg/dL Near Optimal/Above Optimal LDL: 110-129 mg/dL Borderline High LDL: 130-159 mg/dL High LDL: 160-189 mg/dL Very High LDL: greater than or equal to 190 mg/dL HDL Cholesterol 53 >40 mg/dL Desirable HDL: greater than 40 mg/dL Note: This HDL assay may give artificially low results in patients with liver disease. Vitamin D 25-OH Total Reviewed date:05/06/2025 12:18:07 PM Interpretation: Performing Lab:[facility], [address] [place] [phone] Notes/Report: Vitamin D 25-OH Total 113.1 >30 ng/mL Health Based Reference Values* < 20 ng/mL Deficient 20-30 ng/mL Insufficient > 30 ng/mL Sufficient *Saroj TRAYLOR. N Engl J Med. 2007;357:266-280 There is no well-established upper level of normal vitamin D levels. Some laboratories use 50 ng/mL as an upper limit of normal. However, toxicity is patient-dependent and may occur at any level. Careful correlation with the patient's presentation is necessary and, if there is concern for vitamin D toxicity, treatment should be considered irrespective of the serum level. Care must be taken in interpreting Vitamin [...] confirmed with another method such as LC-MS/MS. TSH reflex Free T4 Reviewed date:05/06/2025 12:18:22 PM Interpretation: Performing Lab:[address] [phone] Notes/Report: TSH reflex Free T4 0.25 0.32-4.0 uIU/mL Microalbumin, Random Reviewed date:05/06/2025 12:05:33 PM Interpretation: Performing Lab:[address] [phone] Notes/Report: Creatinine Urine 169.09 Microalbumin Urine 12.0 Microalbum/Creatinine Ratio Ur 7.0 <30 ug/mg cr Albumin/Creatinine Ratio Reference Ranges: Normal: < 30 ug/mg creatinine Microalbuminuria: 30 - 300 ug/mg creatinine Clinical Albuminuria: > 300 ug/mg creatinine Hemoglobin A1c Reviewed date:05/06/2025 11:45:15 AM Interpretation: Performing Lab:[address] [phone] Notes/Report: Hemoglobin A1c % 5.9 <6.0 % Hemoglobin A1C Reference Range Adults: 4.8 - 6.0 % Non diabetic: < 6.0 % Goal: < 7.0 % Additional Action Suggested: > 8.0 % Note: Hemoglobin A1c results are invalid for patients with abnormal amounts of HbF. Blood transfusions may impact the HbA1c concentration in the patient sample. Estimated Average Glucose 123 eAG = Estimated average glucose which is %A1C expressed as average glucose, using the formula of the P0X-Jkhpmbz Average Glucose study (ADAG), Diabetes Care, Vol.31,#8, Feb. 2007 REASON FOR VISIT yearly fasting labs Encounters Encounter Location Date Provider Diagnosis Murphy Villagomez MD [address] [place] [address] Drive [address] [place], [place] [phone] 05/06/2025 Murphy Villagomez Acquired hypothyroidism E03.9 ; Vitamin D deficiency E55.9 ; Prediabetes R73.03 and Essential hypertension I10 Assessments Encounter Date Diagnosis (ICD Code) Assessment Notes Treatment Notes Treatment Clinical Notes Section Notes 05/06/2025 Acquired hypothyroidism (ICD-10 - E03.9) 05/06/2025 Vitamin D deficiency (ICD-10 - E55.9) 05/06/2025 Prediabetes (ICD-10 - R73.03) 05/06/2025 Essential hypertension (ICD-10 - I10) Plan Of Treatment Pending Test Test Name Order Date UA ClnCatch+Micro w/rflx Cult 05/06/2025 Next Appt Details Provider Name:Murphy Melgoza ier, 05/13/2025 01:00:00 PM, [address] [place] [address], [address], [place], [place], [phone], Progress Notes * Margaret PACHECO KDOB:[birth year] (74 yo F)Acc No.[id number]:05/06/2025 Progress Note Patient: Margaret NIELSEN Provider: Tejinder Villagomez MD :1950 A ge:74 Y S ex:Female Date:05/06/2025 Address: [address] [place] [address] Subjective: * Chief Complaints: * 1 . Yearly fasting labs. * Medical History: Objective: * Vitals: Assessment: * Assessment: 1. A cquired hypothyroidism - E03.9 (Primary) 2 . V itamin D deficiency - E55.9 3 . P rediabetes - R73.03 4 . E ssential hypertension - I10 Plan: * Treatment: 2. V itamin D deficiency L AB: UA ClnCatch+Micro w/rflx Cult L AB: Complete Blood Count Auto Diff (Collection Date & Time - 05/06/2025 07:45 AM) L AB: Comprehensive [place]. Panel Fast (Collection Date & Time - 05/06/2025 07:45 AM) L AB: Lipid Panel (Collection Date & Time - 05/06/2025 07:45 AM) L AB: Vitamin D 25-OH Total (Collection Date & Time - 05/06/2025 07:45 AM) L AB: TSH reflex Free T4 (Collection Date & Time - 05/06/2025 07:45 AM) L AB: Microalbumin, Random (Collection Date & Time - 05/06/2025 07:45 AM) L AB: Hemoglobin A1c (Collection Date & Time - 05/06/2025 07:45 AM) 3. P rediabetes L AB: UA ClnCatch+Micro w/rflx Cult L AB: Complete Blood Count Auto Diff (Collection Date & Time - 05/06/2025 07:45 AM) L AB: Comprehensive [place]. Panel Fast (Collection Date & Time - 05/06/2025 07:45 AM) L AB: Lipid Panel (Collection Date & Time - 05/06/2025 07:45 AM) L AB: Vitamin D 25-OH Total (Collection Date & Time - 05/06/2025 07:45 AM) L AB: TSH reflex Free T4 (Collection Date & Time - 05/06/2025 07:45 AM) L AB: Microalbumin, Random (Collection Date & Time - 05/06/2025 07:45 AM) L AB: Hemoglobin A1c (Collection Date & Time - 05/06/2025 07:45 AM) 4. E ssential hypertension L AB: UA ClnCatch+Micro w/rflx Cult L AB: Complete Blood Count Auto Diff (Collection Date & Time - 05/06/2025 07:45 AM) L AB: Comprehensive [place]. Panel Fast (Collection Date & Time - 05/06/2025 07:45 AM) L AB: Lipid Panel (Collection Date & Time - 05/06/2025 07:45 AM) L AB: Vitamin D 25-OH Total (Collection Date & Time - 05/06/2025 07:45 AM) L AB: TSH reflex Free T4 (Collection Date & Time - 05/06/2025 07:45 AM) L AB: Microalbumin, Random (Collection Date & Time - 05/06/2025 07:45 AM) L AB: Hemoglobin A1c (Collection Date & Time - 05/06/2025 07:45 AM) * Procedure Codes: 3 6415 VENIPUNCT, ROUTINE* * * The named appointment provid er may or may not be the originator of this progress note, and it is not deemed complete until electronically signed by the appointment provider. Sign off status: Pending * Provider: Tejinder Villagomez MD Date: 07/06/2024 Generated for Kerry tierney/Zuleika/Blanca on: 1 07/06/2024 12:36 PM EST
[2025-05-06 10:34] LABS: MANUAL DIFF FLAG NO
[2025-05-06 10:43] LABS: Hematocrit 46.0 % (37.0-47.0); Hemoglobin 15.1 g/dl (12.0-16.0); Imm Gran Abs Auto 0.02 X10*3/uL (0.00-0.03); Imm Gran Pct Auto 0.3 % (0.0-0.4); Lymphocytes Absolute Auto 2.0 X10*3/uL (1.2-4.9); Mean Corpuscular HGB Conc 32.8 g/dl (31.0-35.0); Mean Corpuscular Hemoglobin 30.6 pg (27.0-33.0); Mean Corpuscular Volume 93.3 fL (80.0-98.0); NRBC Abs Auto 0.000 X10*3/uL (0.0-0.012); NRBC Pct Auto 0.0 /100WBC (0.0-0.2); Platelet Count 283 X10*3/uL (160-400); Red Blood Count 4.93 X10*6/uL (4.20-5.50); White Blood Count 6.6 X10*3/uL (4.8-10.8)
[2025-05-06 10:55] LABS: Appearance Urine Clear; Glucose Urine UA Negative (Negative); PH 7.5 (5.0-9.0); Specific Gravity - Urine 1.020 (1.005-1.025)
[2025-05-06 11:07] LABS: Alanine Aminotransferase 27 U/L (0-31); Albumin Level 4.6 g/dL (3.5-5.0); Alkaline Phosphatase 72 U/L (39-117); Anion Gap 11 (12-20); Aspartate Amino Transferase 29 U/L (5-31); Blood Urea Nitrogen 19 mg/dL (9-16); Calcium 9.3 mg/dL (8.4-10.2); Carbon Dioxide 28 mmol/L (22-29); Chloride 105 mmol/L (96-108); Cholesterol 168 mg/dL (<200); Estimated Glomerular Filt Rate > 60; HDL Cholesterol 53 mg/dL (>40); Potassium 4.3 mmol/L (3.3-5.1); Sodium 140 mmol/L (135-145); Total Protein 8.0 g/dL (6.5-8.0); Triglycerides 104 mg/dL (<150)
[2025-05-06 11:10] LABS: Microalbum/Creatinine Ratio Ur 7.0 ug/mg cr (<30)
[2025-05-06 12:06] LABS: Free T4 (Free Thyroxine) 1.33 ng/dL (0.71-1.85)
--- OUTSIDE RECORDS SUMMARY | 2025-05-06 12:35 | XMS_ITS | Patient Health Record ---
Author Organization [facility] Address [address] [place] [address] Care Team Providers Care Senior International Tax Manager Name Role Phone Murphy Villagomez MD Primary Care Provider Chaim Galan Jr Unavailable [phone] Allergies Allergen (clinical drug ingredient) Drug/Non Drug [...] 81 MG 1 tablet Orally Once a day; Duration: 30 day(s) Active Celecoxib 200 MG 1 capsule with food Orally Once a day; Duration: 30 day(s) Active Calcium 1200 1629-4866 MG-UNIT 1 tablet Orally Once a day; Duration: 30 day(s) Active Vitamin D3 250 MCG (01723 UT) as directed Orally Active MiraLax (colon prep) 17 GM/SCOOP mixed with Gatorade or Crystal Light Orally begin at 5:00 p.m. the day before the procedure; Duration: 1 day 07/29/2021 Active Immunizations Vaccine Route [...] Status Risk Notes Problem Irritable bowel syndrome (14801174) Irritable bowel syndrome (564.1) Active confirmed Problem Colon cancer screening (794252672) Colon cancer screening (Z12.11) Active confirmed Problem Long-term current use of antiplatelet drug ([id number]) Long-term use of aspirin therapy (Z79.82) Active confirmed Plan Of Treatment Future Test Test Name Order Date COLONOSCOPY 05/11/2012 COLONOSCOPY 07/29/2021 Insurance Providers Payer Name Payer Address Payer Phone Subscriber Number Group Number Insured Name Patient Relationship to Insured Coverage Start Date Coverage End Date MEDICARE OF [place] [address] [place] [id number] [phone] [id number] SONIA PACHECO Self - patient is the insured MEDICAID OF [facility] [address] [place] [address] [phone] [id number] SONIA PACHECO Self - patient is the insured Medical (General) History Medical History History ICD Code Degenerative joint disease CVA 2013 Hypertension Elevated cholesterol Surgical History Surgery Date(Month/Year) thyroid surgery knee replacement
--- OUTSIDE RECORDS SUMMARY | 2025-05-06 12:36 | XMS_ITS | Patient Health Record ---
Author Organization Murphy Villagomez MD Address [address] [place], [place] [id number] Care Team Providers Care Placement Specialist Name Role Phone Murphy Villagomez Primary Care Provider Allergies Allergen (clinical drug ingredient) Drug/Non Drug Allergy documented on EMR Reaction Allergy Type Onset Date Status Latex latex (uncoded) rash Allergy Acti ve Results Component Value Reference Range Notes Liver Panel Reviewed date:11/22/2024 01:36:43 PM Interpretation: Performing Lab:[facility], [address] [place] [phone] Notes/Report: Bilirubin Total 0.8 0.0-1.0 mg/dL Bilirubin Direct 0.3 0.0-0.5 mg/dL Aspartate Amino Transferase 31 5-31 U/L Alanine Aminotransferase 27 0-31 U/L Total Protein 7.4 6.5-8.0 g/dL Albumin Level 4.3 3.5-5.0 g/dL Alkaline Phosphatase 61 39-117 U/L Glucose Fasting Reviewed date:11/22/2024 01:36:52 PM Interpretation: Performing Lab:[address] [phone] Notes/Report: Glucose Fasting 103 60-99 mg/dL A fasting glucose from 100-125 mg/dl is considered impaired (pre-diabetes). Lipid Panel with Reflex Reviewed date:11/22/2024 01:36:16 PM Interpretation: Performing Lab:[address] [phone] Notes/Report: Triglycerides 75 <150 mg/dL Desirable Triglyceride: [...] A1c Reviewed date:11/22/2024 01:26:06 PM Interpretation: Performing Lab:[address] [phone] Notes/Report: Hemoglobin A1c % 6.0 <6.0 % [...] average glucose, using the formula of the L2F-Anwouts Average Glucose study (ADAG), Diabetes Care, Vol.31,#8, Feb. 2007 Complete Blood Count Auto Di ff Reviewed date:05/06/2025 12:19:56 PM Interpretation: Performing Lab:[facility], [address] [place] [phone] Notes/Report: White Blood Count 6.6 4.8-10.8 X10*3/uL [...] 0.0-0.2 /100WBC Neutrophils Absolute Auto 3.7 2.0-8.3 x10*3/uL Imm Gran Abs Auto 0.02 0.00-0.03 X10*3/uL Lymphocytes Absolute Auto 2.0 1.2-4.9 X10*3/uL Monocytes Absolute Auto 0.6 0.1-1.2 X10*3/uL Eosinophils Absolute Auto 0.2 0.0-0.4 X10*3/uL Basophils Absolute Auto 0.1 0.0-0.2 X10*3/uL NRBC Abs Auto 0.000 0.0-0.012 X10*3/uL Comprehensive [place]. Panel Fa st Reviewed date:05/06/2025 12:20:50 PM Interpretation: Performing Lab:[facility], [address] [place] [phone] Notes/Report: Sodium 140 135-145 mmol/L Potassium 4.3 [...] Panel Reviewed date:05/06/2025 12:17:55 PM Interpretation: Performing Lab:[address] [phone] Notes/Report: Triglycerides 104 <150 mg/dL Desirable Triglyceride: [...] Total Reviewed date:05/06/2025 12:18:07 PM Interpretation: Performing Lab:[address] [phone] Notes/Report: Vitamin D 25-OH Total 113.1 >30 [...] T4 Reviewed date:05/06/2025 12:18:22 PM Interpretation: Performing Lab:[address] [phone] Notes/Report: TSH reflex Free T4 0.25 0.32-4.0 uIU/mL Microalbumin, Random Reviewed date:05/06/2025 12:05:33 PM Interpretation: Performing Lab:[facility], [address] [place] [phone] Notes/Report: Creatinine Urine 169.09 Microalbumin Urine 12.0 Microalbum/Creatinine Ratio Ur 7.0 <30 ug/mg cr Albumin/Creatinine Ratio Reference Ranges: Normal: < 30 ug/mg creatinine Microalbuminuria: 30 - 300 ug/mg creatinine Clinical Albuminuria: > 300 ug/mg creatinine Hemoglobin A1c Reviewed date:05/06/2025 11:45:15 AM Interpretation: Performing Lab:[facility], [address] [place] [phone] Notes/Report: Hemoglobin A1c % 5.9 <6.0 % [...] average glucose, using the formula of the O3N-[place] Average Glucose study (ADAG), Diabetes Care, Vol.31,#8, Feb. 2007 TSH reflex Free T4 Reviewed date:05/09/2024 12:22:05 PM Interpretation: Performing Lab:[address] [phone] Notes/Report: TSH reflex Free T4 0.21 0.32-4.0 uIU/mL Free T4 (Free Thyroxine) Reviewed date:05/09/2024 12:21:57 PM Interpretation: Performing Lab:[address] [phone] Notes/Report: Free T4 (Free Thyroxine) 1.27 0.71-1.85 ng/dL Howard Lopez Reviewed date:05/08/2024 04:46:51 PM Interpretation: Performing Lab:[address] [phone] Notes/Report: Howard Lopez See Note Specimen held untested for 24 hours; Call to request Chemistry testing. Howard Lopez Reviewed date:11/22/2024 12:24:49 PM Interpretation: Performing Lab:[address] [phone] Notes/Report: Howard Lopez See Note Specimen held untested for 24 hours; Call to request Chemistry testing. MM tomosynthesis screening B I Reviewed date:04/30/2025 05:13:42 PM Interpretation: Performing Lab: Notes/Report: [facility] [address] [place] [address] Mammography Report Signed Patient: Margaret Dick MR#: [id number] 1 : 1950 Acct:[id number] Age/Sex: 74 / F ADM Date: 04/25/25 Loc: HO.MAMMO Attending Dr: Murphy Villagomez MD Ordering Physician: Murphy Villagomez MD Results: 1Ne gative Date of Service: 04/25/25 Follow Up: 1 Year From Orig inal Mammogram Procedure(s): MM tomosynthesis screening BI Accession Number(s): [id number] cc: Murphy Villagomez MD Reason For Exam: SCREENING EXAMINATION: MM SCREENING DIGITAL BREAST TOMOSYNTHESIS, BILATERAL CLINICAL INFORMATION: Screening. Asymptomatic. COMPARISON: Comparison made to multiple prior, most recent April 10, 2024, and most remote September 20, 2017. TECHNIQUE: Digital breast tomosynthesis is performed in mediolateral oblique and craniocaudal views along with computer-aided detection (CAD). Synthesized 2D images are generated from the tomosynthesis. FINDINGS: BREAST COMPOSITION: There are scattered areas of fibroglandular density. BILATERAL BREASTS: No significant masses, suspicious calcifications or other abnormalities are seen in either breast. MM/MM tomosynthesis screening BI IMPRESSION: BILATERAL BREASTS: Negative, no mammographic evidence of malignancy. Normal interval follow-up is recommended in 12 months. ASSESSMENT: BI-RADS: Category 1: Negative RECOMMENDATION: Routine annual mammography screening. FOLLOW-UP: 1 year F/U This examination should not preclude the clinical evaluation of a suspicious palpable abnormality. This patient's information was entered into a reminder system with a target due date for their next mammogram. Electronically signed by: Harley Eaton MD 04/28/2025 05:39 PM EDT Dictated By: Harley Eaton MD Signed By: <Electronically signed by Harley Eaton MD in OV> 04/28/25 1739 DD/ 0930 TD/TT: 04/25/25 0945 Sluice Tender: [facility] [address] [place] [address] Mammography Report Signed Patient: Cj Dick MR#: [id number] 1 : 1950 Acct:[id number] Age/Sex: 74 / F ADM Date: 04/25/25 Loc: HO.MAMMO Attending Dr: Murphy Villagomez MD Ordering Physician: Murphy Villagomez MD Results: 1Ne gative Date of Service: 04/25/25 Follow Up: 1 Year From Orig inal Mammogram Procedure(s): MM tomosynthesis screening BI Accession Number(s): [id number] cc: Murphy Villagomez MD Reason For Exam: SCREENING EXAMINATION: MM SCREENING DIGITAL BREAST TOMOSYNTHESIS, BILATERAL CLINICAL INFORMATION: Screening. Asymptomatic. COMPARISON: Comparis on made to multiple prior, most recent April 10, 2024, and most remot e September 20, 2017. TECHNIQUE: Digital breast tomosynthesis is performed in mediolateral oblique and craniocaudal views along with computer-aided detection (CAD). Synthesized 2D image s are generated from the tomosynthesis. FINDINGS: BREAST COMPOSITION: There are scattered areas of fibroglandular density. BILATERAL BREASTS: N o significant masses, suspicious calcifications or other abnormalities are seen in either breast. MM/MM tomosynthesis screening BI IMPRESSION: BILATERAL BREASTS: Negative, no mammographic evidence of malignancy. Normal interval follow-up is recommended in 12 months. ASSESSMENT: BI-RADS: Category 1: Negative RECOMMENDATION: Routine annual mammography screening. FOLLOW-UP: 1 year F/U This examination should not preclude the clinical evaluation of a suspicious palpable abnormality. This patient's information was entered into a reminder system with a target due date for their next mammogram. Electronically cheryl d by: Harley Eaton MD 04/28/2025 05:39 PM EDT Dictated By: Harley Eaton MD Signed By: <Electronically signed by Harley Eaton MD in OV> 04/28/25 1739 DD/ 0930 TD/TT: 04/25/25 0945 Sluice Tender: Free T4 (Free Thyroxine) Reviewed date:05/06/2025 12:18:34 PM Interpretation: Performing Lab:[facility], [address] [place] [phone] Notes/Report: Free T4 (Free Thyroxine) 1.33 0.71-1.85 ng/dL Hold Gold Reviewed date:05/06/2025 11:46:40 AM Interpretation: Performing Lab:[facility], [address] [place] [phone] Notes/Report: Hold Gold See Note Specimen held untested for 24 hours; Call to request Chemistry testing. UA CC w/rflx Micro + Cult Reviewed date:05/06/2025 11:45:07 AM Interpretation: Performing Lab:[facility], [address] [facility], [place] [address] Notes/Report: Urine, Clean Catch Color Urine Yellow Appearance Urine Clear PH 7.5 5.0-9.0 Glucose Urine UA Negative Negative mg/dL Urine Blood Negative Negative Specific [place] - Urine 1.020 1.005-1.025 Urine Protein Negative Neg-Trace mg/dL Urine Ketones Negative Negative mg/dL Nitrite Urine Negative Negative Leukocyte Esterase Urine Negative Negative Reason For Referral No Information Medications Medication [...] EVERY DAY WITH FOOD for 90 Active Amoxicillin 500 MG 4 capsule Orally one hour before procedure for 1 days 09/26/2020 Active Aspirin 81 MG 1 tablet Orally Once a day Active Atorvastatin Calcium 80 MG take 1 tablet by mouth once daily Orally Once a day Active Vitamin D 125 MCG (5000 UT) 1 tablet Orally every other day Active Magnesium 400 MG as directed [...] Problem Status W/U Status Risk Notes Problem 62700068 Age-related osteoporosis without current pathological fracture (M81.0) Active confirmed Problem 325490116 Abnormal ECG (R94.31) Active confirmed Problem 92627196 Vitamin D defici ency (E55.9) Active confirmed Problem 5019674755314773 Primary osteoarthritis, right hand (M19.041) Active confirmed Problem Disorder of bone (40208261) Disorder of bone, unspecified (M89.9) Active confirmed osteopen ia Problem 12381945 Essential hypertension (I10) Active confirmed Problem 1121646 Psoriasis (L40.9) Active confirmed Problem 072238371 Acquired hypothyroidism (E03.9) Active confirmed Problem 04153885 Intrinsic eczema (L20.84) Active confirmed Problem 6162360668655 Coronary 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.10) Active confirmed Problem 569063587 Abnormal mammogr am (R92.8) Active confirmed Problem 298595702 Cervical arthrit is (M46.92) Active confirmed Problem 2990068 Former smoker (Z87.891) Active confirmed Problem 899543471 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) Active confirmed Problem 009695649 Prediabetes (R73.03) Active confirmed Problem 452144785 Pure hypercholesterolemia (E78.00) Active confirmed Problem 06235745 MARA (obstructive sleep apnea) (G47.33) Active confirmed Problem 634061601 Arthritis of kne e (M17.10) Active confirmed Problem 7484023591470 CAD in [place] (I25.10) Active confirmed Problem 802124614 H/O TIA (transie nt ischemic attack) and stroke (Z86.73) Active confirmed Problem 604567761 History of lung cancer (Z85.118) Active confirmed Vital Signs Blood pressure diastolic 70 mm Hg 11/29/2024 Height 60.5 in 11/29/2024 Blood pressure systolic 142 mm Hg 11/29/2024 Weight 127 lbs 11/29/2024 BMI 24.39 kg/m2 11/29/2024 Encounters Encounter Location Date Provider Diagnosis Murphy Villagomez MD [address] [place] [id number] 11/22/2024 Murphy Villagomez Pure hypercholestero lemia E78.00 and Prediabetes R73.03 Murphy Villagomez MD [address] [id number] 05/06/2025 Murphy Villagomez Acquired hypothyroid ism E03.9 ; Vitamin D deficiency E55.9 ; Prediabetes R73.03 and Essential hypertension I10 Murphy Villagomez MD [address] [id number] 05/08/2024 Murphy Villagomez Acquired hypothyroid ism E03.9 ; Prediabetes R73.03 ; Primary osteoarthritis, right hand M19.041 ; Vitamin D deficiency E55.9 ; MARA (obstructive sleep apnea) G47.33 ; CAD in [place] artery I25.10 ; Essential hypertension I10 ; Intrinsic eczema L20.84 and Depression screening Z13.31 Murphy Villagomez MD [address] [id number] 11/29/2024 Murphy Villagomez Prediabetes R73.03 ; Pure hypercholesterolemia E78.00 and H/O TIA (transient ischemic attack) and stroke Z86.73 Murphy Villagomez MD [address] [id number] 05/18/2024 Murphy Villagomez MD [address] [place] [address] [address] [id number] 12/18/2024 Murphy Villagomez Assessments Encounter Date Diagnosis (ICD Code) Assessment Notes Treatment Notes Treatment Clinical Notes Section Notes 11/22/2024 Pure hypercholesterolemia (ICD-10 - E78.00) 05/06/2025 Acquired hypothyroid ism (ICD-10 - E03.9) 05/08/2024 Acquired hypothyroid ism (ICD-10 - E03.9) pending lab 05/08/2024 Prediabetes (ICD-10 - R73.03) better a1c, will continue to monitor, no need for medication at this time 11/29/2024 Prediabetes (ICD-10 - R73.03) doing well with good a1c, no need for medication at this time 11/29/2024 Pure hypercholesterolemia (ICD-10 - E78.00) stable, will cntnue current regiment 11/22/2024 Prediabetes (ICD-10 - R73.03) 05/06/2025 Vitamin D deficiency (ICD-10 - E55.9) 05/08/2024 Primary osteoarthrit is, right hand (ICD-10 - M19.041) stable, will continue current regiment 11/29/2024 H/O TIA (transient ischemic attack) and stroke (ICD-10 - Z86.73) not having any problems, will continue to monitor 05/06/2025 Prediabetes (ICD-10 - R73.03) 05/08/2024 Vitamin D deficiency (ICD-10 - E55.9) stable, will continue current regiment 05/06/2025 Essential hypertensi on (ICD-10 - I10) 05/08/2024 MARA (obstructive sle ep apnea) (ICD-10 - G47.33) says that she is getting more episodes of apnea and longer. needs sleep study/ patient is refusing to have this done 05/08/2024 CAD in [place] artery (ICD-10 - I25.10) stable, will continue current regiment 05/08/2024 Essential hypertensi on (ICD-10 - I10) doing well, will continue current regiment 05/08/2024 Intrinsic eczema (IC D-10 - L20.84) stable, will continue current regiment 05/08/2024 Depression screening (ICD-10 - Z13.31) negative screen 05/08/2024 Other did have surgery and is doing well/ NEED D/C SUMMARY [facility] and dr muller note/ request will be sent Plan Of Treatment Pending Test Test Name Order Date Electrocardiogram (EKG) 08/05/2016 ECHO EXAM OF HEART 11/26/2014 XR DORSAL THORACIC SPINE 11/26/2011 Holter monitor 12/05/2014 24 hour holter monitor 11/11/2011 EEG 11/11/2011 ECHO 12/05/2014 MM screening mammo BI 09/26/2020 UA ClnCatch+Micro w/rflx Cult 05/06/2025 Future Test Test Name Order Date BONE DENSITY DEXA 03/26/2021 Next Appt Details Provider Name:Murphy Melgoza ier, 05/13/2025 01:00:00 PM, [address] [facility], [address], [place], [place], [id number], Insurance Providers Payer Name Payer Address Payer Phone Subscriber Number Group Number Insured Name Patient Relationship to Insured Coverage Start Date Coverage End Date [employer] [address] [place] [address] [id number] Margaret Dick Self - patient is the insured [address] [address] [id number] Margaret Dick Self - patient is the insured Medical (General) History Medical History History ICD Code colonoscopy 1999; 05/19/2012 - Due 05/23 22, 08/11/21 done, repeat 10 yrs scheduling appt with Dr. Bella 04/16 normal trace tricuspic regurge. moniter normal 2014
== END 2025-05-06 10:29 | disposition home or self-care (01) ==
LOC: HO.LNP 10:28
PROVIDERS: Visit Provider Internal Medicine
DX: I10 Essential (primary) hypertension (principal); R73.03 Prediabetes; E03.9 Hypothyroidism, unspecified; E55.9 Vitamin D deficiency, unspecified
CPT/HCPCS: 80053; 80061; 81003; 82043; 82306; 82570; 83036; 84439; 84443; 85025